=== PATIENT | female | born 1955 | race Caucasian/White ===

== ENCOUNTER 2019-01-24 10:29 | Emergency (ER) | payer OTHER ==
--- OUTSIDE RECORDS SUMMARY | 2019-01-24 10:32 | XMS REPORT | Continuity of Care Document ---
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 Medications Medication Details Route Status Patient Ordering Order Source Instructions Provider Date tramadol 50 mg=1 tab, Active 09/16/ [facility] hydrochloride 50 PO, BID, X 30 2019 [facility] MG Oral Tablet day, # 60 tab, 3 Refill(s) Actemra 20 mg/mL IV, q4wk, 0 Active 09/16/ Mischer intravenous Refill(s) 2019 Neuro solution pilocarpine 5 mg 5 mg=1 tab, Active 05/15/ Mischer oral tablet PO, TID, # 90 2018 Neuro tab, 0 Refill(s) pravastatin 20 mg 20 mg=1 tab, Active 05/15/ [facility] oral tablet PO, Bedtime, # 2018 [facility] 30 tab, 0 Refill(s) gabapentin 800 MG 800 mg=1 tab, No Longer 05/15/ M[facility] Oral Tablet PO, TID, # 270 Active 2018 [facility] tab, 3 Refill(s), Pharmacy: [facility] baclofen 10 mg 10 mg=1 tab, No Longer 05/15/ Mischer oral tablet PO, TID, # 270 Active 2018 Neuro tab, 2 Refill(s), Pharmacy: [facility] tramadol 50 mg=1 tab, No Longer 05/15/ Mischer hydrochloride 50 PO, BID, X 30 Active 2017 Neuro MG Oral Tablet day, # 60 tab, 3 Refill(s) celecoxib 200 mg 200 mg=1 cap, Active oral capsule PO, BID, 0 2016 Refill(s) 200 ACTUAT 180 Active Albuterol 0.09 microgram=2 2016 MG/ACTUAT Metered puff, Dose Inhaler INHALATION, RQID, 0 Refill(s) azaTHIOprine 50 mg 50 mg=1 tab, Active oral tablet PO, Daily, 0 2016 Refill(s) duloxetine 60 mg, 2 cap, No Longer Route: PO, Active 2016 [facility] Drug form: DRC, Daily, Dosing Weight 71.545, kg, Start date: 10/24/16 9:00:00 CDT, Duration: 30 day, Stop date: 11/22/16 9:00:00 CDTNotes: (Same as: Cymbalta) (Do Not Crush) celecoxib 200 mg, 1 cap, Inactive Route: PO, 2016 [facility] Drug form: CAP, BID, Dosing Weight 71.545, kg, Start date: 10/24/16 9:00:00 CDT, Duration: 30 day, Stop date: 11/22/16 17:00:00 CDTNotes: NSAID. Please check indication. Not for seizure. (Same As: CeleBREX) Duloxetine Duloxetine, 60 [facility]: [facility], Daily, 10/24/16 9:00:00 CDT, Duration: 30 day, Stop date: 11/22/16 9:00:00 CDT ProAir HFA 90 2 puff, Route: No Longer mcg/inh inhalation INHALATION, Active 2016 [facility] aerosol with Drug Form: adapter AERO/A, Dosing Weight 71.545, kg, RQID, Start date: 10/23/16 19:00:00 CDT, Duration: 30 day, Stop date: 11/22/16 15:00:00 CDTNotes: Same as: Ventolin HFA WASTE: Aerosol - Return to Pharmacy Azathioprine 50 mg, 1 tab, No Longer Route: PO, Active 2016 [facility] Drug form: TAB, Daily, Dosing Weight 71.545, kg, Start date: 10/23/16 16:00:00 CDT, Duration: 30 day, Stop date: 11/22/16 9:00:00 CDTNotes: (Same As: Imuran) Hydrochlorothiazid 1 tab, Route: No Longer e 25 MG / PO, Drug Form: Active 2016 [facility] Triamterene 37.5 TAB, Dosing MG Oral Tablet Weight 71.545, kg, Daily, Start date: 10/23/16 16:00:00 CDT, Duration: 30 day, Stop date: 11/22/16 9:00:00 CDTNotes: (triamterene-h ydrochlorothia zide 37.5-25 mg TAB) (Same As: Maxzide-25) Symbicort 160/4.5 2 inhalation, No Longer inhalation aerosol Route: Active 2016 [facility] with adapter INHALATION, Drug Form: AERO/A, Dosing Weight 71.545, kg, RBID, Start date: 10/23/16 13:19:00 CDT, Stop date: 11/22/16 8:00:00 CDTNotes: (Same as: Symbicort) WASTE: Aerosol - Return to Pharmacy 200 ACTUAT 2 puff, Route: Inactive Albuterol 0.09 INHALATION, 2016 [facility] MG/ACTUAT Metered Drug Form: Dose Inhaler AERO/A, Dosing [ProAir HFA] Weight 71.545, kg, RQID, Start date: 10/23/16 13:00:00 CDT, Duration: 30 day, Stop date: 11/22/16 11:00:00 CDTNotes: Same as: Ventolin HFA WASTE: Aerosol - Return to Pharmacy tramadol 50 mg, 1 tab, No Longer hydrochloride 50 Route: PO, Active 2016 [facility] Oral Tablet Drug form: TAB, Q6H, Dosing Weight 71.545, kg, PRN Pain Score 4-6, Start date: 10/23/16 11:53:00 CDT, Stop date: 11/22/16 11:52:00 CDTNotes: Not to exceed 400mg/day. (Same As: Ultram) Robaxin 500 mg, 1 tab, No Longer Route: PO, Active 2016 [facility] Drug form: TAB, TID, Dosing Weight 64.545, kg, Start date: 10/23/16 9:00:00 CDT, Duration: 30 day, Stop date: 11/21/16 17:00:00 CDTNotes: (Same as:Robaxin) Promethazine 12.5 mg, 0.5 No Longer mL, Route: Active 2016 [facility] IVPB, Q6H, Dosing Weight 71.545, kg, PRN as needed for nausea/vomitin g, Priority: NOW, Start date: 10/23/16 6:41:00 CDT, Duration: 30 day, Stop date: 11/22/16 6:40:00 CDTNotes: Do not give IV push. (Same as: Phenergan) Dilaudid 0.2 mg, 0.2 No Longer mL, Route: IV, 2016 [facility] Drug form: INJ, Q4H, Dosing Weight 71.545, kg, PRN Pain Score 4-6, Priority: NOW, Start date: 10/23/16 6:41:00 CDT, Duration: 30 day, Stop date: 11/22/16 6:40:00 CDT Acetaminophen 650 mg, 2 tab, No Longer Route: PO, 2016 [facility] Drug form: TAB, Q6H, Dosing Weight 71.545, kg, PRN Pain Score 1-3, Priority: NOW, Start date: 10/23/16 6:41:00 CDT, Duration: 30 day, Stop date: 11/22/16 6:40:00 CDTNotes: Do not exceed 4 gm/day. (Same as: Tylenol) Zofran 4 mg, 2 mL, No Longer Route: IV, Active 2016 [facility] Drug form: INJ, Q6H, Dosing Weight 71.545, kg, PRN as needed for nausea/vomitin g, Priority: NOW, Start date: 10/23/16 0:07:00 CDT, Duration: 30 day, Stop date: 11/22/16 0:06:00 CDTNotes: (Same as: Zofran) MEDICATION WASTE Product Size: 4 mg Product Wasted: ___ mg Clindamycin 900 mg, 50 mL, No Longer Route: IVPB, Active 2016 [facility] Drug form: INJ, ABXQ8H, Dosing Weight 64.545, kg, Start date: 10/22/16 18:00:00 CDT, Duration: 5 day, Stop date: 10/27/16 10:00:00 CDT, ABX Indication: Surgical Prophylaxis Dexamethasone 4 mg, 1 mL, Active Route: IVP, 2016 [facility] Drug form: INJ, Q6H, Dosing Weight 64.545, kg, Start date: 10/22/16 18:00:00 CDT, Duration: 1 day, Stop date: 10/23/16 12:00:00 CDTNotes: Concentration: 4mg/ml Promethazine 6.25 mg, No Longer Route: IVPB, 2016 [facility] PRN, Dosing Weight 64.545, kg, PRN as needed for nausea/vomitin g, Start date: 10/22/16 17:55:00 CDT, Duration: 30 day, Stop date: 11/21/16 17:54:00 CDT Fentanyl 50 microgram, No Longer Route: IV, Active 2016 [facility] Q5Min, Dosing Weight 64.545, kg, PRN Pain Score 7-10, Start date: 10/22/16 17:55:00 CDT, Duration: 30 day, Stop date: 11/21/16 17:54:00 CDT Hydralazine 10 mg, Route: No Longer IV, PRN, Active 2016 [facility] Dosing Weight 64.545, kg, PRN Elevated BP, Start date: 10/22/16 17:55:00 CDT, Duration: 30 day, Stop date: 11/21/16 17:54:00 CDT Demerol HCl 50 mg, Route: No Longer IV, Q10Min, Active 2016 [facility] Dosing Weight 64.545, kg, PRN Pain Score 7-10, Start date: 10/22/16 17:55:00 CDT, Duration: 4 day, Stop date: 10/26/16 17:54:00 CDT Morphine 4 mg, Route: No Longer IVP, Q5Min, Active 2016 [facility] Dosing Weight 64.545, kg, PRN Pain Score 7-10, Start date: 10/22/16 17:55:00 CDT, Duration: 3 doses or times, Stop date: Limited # of times Hydromorphone 0.5 mg, Route: Inactive IVP, Q5Min, 2016 [facility] Dosing Weight 64.545, kg, PRN Pain Score 7-10, Start date: 10/22/16 17:55:00 CDT, Duration: 4 doses or times, Stop date: Limited # of times Ondansetron 4 mg, Route: No Longer IVP, ONCE, Active 2016 [facility] Dosing Weight 64.545, kg, PRN Nausea & Vomiting, Start date: 10/22/16 17:55:00 CDT Ibuprofen 600 mg, Route: No Longer PO, Drug form: Active 2016 [facility] TAB, Q6H, Dosing Weight 64.545, kg, PRN Pain Score 1-3, Start date: 10/22/16 17:55:00 CDT, Duration: 30 day, Stop date: 11/21/16 17:54:00 CDT Ketorolac 30 mg, Route: No Longer IVP, ONCE, Active 2016 [facility] Dosing Weight 64.545, kg, Start date: 10/22/16 17:55:00 CDT, Duration: 1 doses or times, Stop date: 10/22/16 17:55:00 CDT Naloxone 0.4 mg, Route: No Longer IVP, Q2MIN, Active 2016 [facility] Dosing Weight 64.545, kg, PRN Narcotic Reversal, Start date: 10/22/16 17:55:00 CDT, Duration: 8 doses or times, Stop date: Limited # of times Flumazenil 0.2 mg, Route: No Longer IVP, PRN, Active 2016 [facility] Dosing Weight 64.545, kg, PRN Benzodiazepine Reversal, Initial dose, Start date: 10/22/16 17:55:00 CDT, Duration: 30 day, Stop date: 11/21/16 17:54:00 CDT Acetaminophen 325 2 tab, Route: No Longer MG / Hydrocodone PO, Drug Form: Active 2016 [facility] Bitartrate 10 MG TAB, Dosing Oral Tablet [[place] Weight 64.545, 10/325] kg, Q4H, PRN Pain Score 4-6, Start date: 10/22/16 17:47:00 CDT, Duration: 30 day, Stop date: 11/21/16 17:46:00 CDTNotes: Do not exceed 4gm/day of acetaminophen. (Same as: [place] 325/10) Morphine 2 mg, 1 mL, No Longer Route: IVP, Active 2016 [facility] Drug form: INJ, Q2H, Dosing Weight 64.545, kg, PRN Pain Score 7-10, Start date: 10/22/16 17:46:00 CDT, Duration: 30 day, Stop date: 11/21/16 17:45:00 CDTNotes: (Same as:MORPhine Sulfate) fentaNYL (ANES) Route: IV, Inactive Drug form: 2016 [facility] INJ, ONCE, Stop date: 10/22/16 17:46:00 CDT fentaNYL (ANES) Route: IV, Inactive Drug form: 2016 [facility] INJ, ONCE, Stop date: 10/22/16 17:33:00 CDT norepinephrine Route: IV, Inactive (ANES) Drug form: 2016 [facility] INJ, ONCE, Stop date: 10/22/16 17:33:00 CDT phenylephrine Route: IV, Inactive (ANES) Drug form: 2016 [facility] INJ, ONCE, Stop date: 10/22/16 17:31:00 CDT ondansetron (ANES) Route: IV, Inactive Drug form: 2016 [facility] INJ, ONCE, Stop date: 10/22/16 17:16:00 CDT calcium chloride Route: IV, Inactive (ANES) Drug form: 2016 [facility] INJ, ONCE, Stop date: 10/22/16 16:35:00 CDT albumin human Route: IV, Inactive 10/22/ (ANES) (ANES) Drug form: 2016 [facility] INJ, Start date: 10/22/16 15:35:00 CDT, Stop date: 10/22/16 16:35:00 CDT dexamethasone Route: IV, Inactive (ANES) Drug form: 2016 [facility] INJ, ONCE, Stop date: 10/22/16 15:30:00 CDT ceFAZolin (ANES) Route: IV, Inactive (ANES) Drug form: 2016 [facility] INJ, Start date: 10/22/16 14:55:00 CDT, Stop date: 10/22/16 15:55:00 CDT famotidine (ANES) Route: IV, Inactive Drug form: 2016 [facility] INJ, ONCE, Stop date: 10/22/16 14:43:00 CDT hydromorphone Route: IV, Inactive (ANES) Drug form: 2016 [facility] INJ, ONCE, Stop date: 10/22/16 13:32:00 CDT midazolam (ANES) Route: IV, Inactive Drug form: 2016 [facility] SOLN, ONCE, Stop date: 10/22/16 12:57:00 CDT ePHEDrine (ANES) Route: IV, Inactive Drug form: 2016 [facility] INJ, ONCE, Stop date: 10/22/16 12:42:00 CDT norepinephrine Route: IV, Inactive (ANES) Drug form: 2016 [facility] INJ, ONCE, Stop date: 10/22/16 12:37:00 CDT rocuronium (ANES) Route: IV, Inactive Drug form: 2016 [facility] INJ, ONCE, Stop date: 10/22/16 12:32:00 CDT propofol (ANES) Route: IV, Inactive Drug form: 2016 [facility] INJ, ONCE, Stop date: 10/22/16 12:32:00 CDT fentaNYL (ANES) Route: IV, Inactive Drug form: 2016 [facility] INJ, ONCE, Stop date: 10/22/16 12:32:00 CDT lidocaine (ANES) Route: IV, Inactive Drug form: 2016 [facility] INJ, ONCE, Stop date: 10/22/16 12:32:00 CDT acetaminophen Route: IV, Inactive (ANES) (ANES) Drug form: 2016 [facility] INJ, Start date: 10/22/16 11:35:00 CDT, Stop date: 10/22/16 12:35:00 CDT ceFAZolin (ANES) Route: IV, Inactive (ANES) Drug form: 2016 [facility] INJ, Start date: 10/22/16 11:30:00 CDT, Stop date: 10/22/16 12:30:00 CDT LR 1000 mL INJ Route: IV, Inactive (ANES) Total Volume: 2016 [facility] 1,000, Start date: 10/22/16 11:04:00 CDT, Stop date: 10/22/16 12:04:00 CDT Lactated Ringers 1,000 mL, No Longer 1,000 mL Rate: [address] [facility] ml/hr, Infuse over: 40 hr, Route: IV, Dosing Weight 64.545 kg, Total Volume: 1,000, Start date: 10/22/16 9:26:00 CDT, Duration: 30 day, Stop date: 11/21/16 9:25:00 CDT amitriptyline 10 10 mg=1 tab, Active mg oral tablet PO, Bedtime, # 2017 [facility] 30 day, 0 Refill(s) gabapentin 800 MG 800 mg=1 tab, Active Oral Tablet PO, TID, # 270 2016 tab, 0 Refill(s) azaTHIOprine 50 mg 100 mg=2 tab, Active oral tablet PO, Daily, # 2016 60 tab, 0 Refill(s) Fentanyl 50 microgram, Inactive Route: IVP, 2014 Q5Min, Dosing Weight 60.909, kg, PRN Pain Score 7-10, Start date: 05/10/15 11:01:00, Duration: 2 doses or times, Stop date: Limited # of times Naloxone 0.04 mg, Inactive Route: IVP, 2014 [facility] Q2MIN, Dosing Weight 60.909, kg, PRN Narcotic Reversal, Start date: 05/10/15 11:01:00, Duration: 8 doses or times, Stop date: Limited # of times Flumazenil 0.2 mg, Route: Inactive 05/10[facility] IVP, PRN, 2014 [facility] Dosing Weight 60.909, kg, PRN Benzodiazepine Reversal, Initial dose, Start date: 05/10/15 11:01:00, Duration: 30 day, Stop date: 06/09/15 11:00:00 Meperidine 12.5 mg, Inactive Route: IVP, 2014 [facility] Q30Min, Dosing Weight 60.909, kg, PRN Other -See Comment, For shivering, Start date: 05/10/15 11:01:00, Duration: 2 doses or times, Stop date: Limited # of times Hydromorphone 0.5 mg, Route: Inactive IVP, Q5Min, 2014 [facility] Dosing Weight 60.909, kg, PRN Pain Score 7-10, Start date: 05/10/15 11:01:00, Duration: 4 doses or times, Stop date: Limited # of times Ondansetron 4 mg, Route: Inactive 05/10[facility] IVP, ONCE, 2014 [facility] Dosing Weight 60.909, kg, PRN Nausea & Vomiting, Start date: 05/10/15 11:01:00 Acetaminophen 1,000 mg, Inactive Route: IVPB, 2014 [facility] Drug form: INJ, ONCE, Dosing Weight 60.909, kg, PRN Pain Score 1-3, Start date: 05/10/15 11:01:00, Duration: 1 doses or times, Stop date: Limited # of times Oxycodone 5 mg, Route: Inactive PO, Drug form: 2014 [facility] TAB, Q4H, Dosing Weight 60.909, kg, PRN Pain Score 4-6, Start date: 05/10/15 11:01:00, Duration: 30 day, Stop date: 06/09/15 11:00:00 Calcium Chloride 1,000 mL, Inactive 0.0014 MEQ/ML / Rate: [address] [facility] Potassium Chloride ml/hr, Infuse 0.004 MEQ/ML / over: 40 hr, Sodium Chloride Route: IV, 0.103 MEQ/ML / Dosing Weight Sodium Lactate 60.909 kg, 0.028 MEQ/ML Total Volume: Injectable 1,000, Start Solution date: 05/10/15 9:17:00, Duration: 30 day, Stop date: 06/09/15 9:16:00 Ancef 1 gm, Route: Inactive IVPB, ONCE, 2014 [facility] Dosing Weight 60.909, kg, Start date: 05/10/15 7:56:00, Stop date: 05/10/15 7:56:00 Calcium Chloride 1,000 mL, Inactive 0.0014 MEQ/ML / Rate: [address] [facility] Potassium Chloride ml/hr, Infuse 0.004 MEQ/ML / over: 40 hr, Sodium Chloride Route: IV, 0.103 MEQ/ML / Dosing Weight Sodium Lactate 60.909 kg, 0.028 MEQ/ML Total Volume: Injectable 1,000, Start Solution date: 05/10/15 7:04:00, Duration: 30 day, Stop date: 06/09/15 7:03:00 multivitamin with 0 Refill(s) Active minerals 2014 [facility] Fish Oil 1200 mg 1,200 mg=1 Active oral capsule cap, PO, TID, 2014 0 Refill(s) Zinc 140 mg, PO, Active Daily, [address] [facility] Refill(s) Magnesium Oxide 400 mg=1 tab, Active PO, BID, # [address] [facility] tab, 0 Refill(s) Calcium Carbonate 0 Refill(s) Active 2014 [facility] Probiotic Formula 1 cap, PO, Active Daily, [address] [facility] Refill(s) Acetaminophen 500 1,000 mg=2 Active MG Oral Tablet tab, PO, Q4H, 2014 [facility] [Tylenol] PRN Pain, # 120 tab, 0 Refill(s) cetirizine 10 mg=1 tab, Active hydrochloride 10 PO, Daily, # 2015 [facility] Oral Tablet 30 tab, 0 [Zyrtec] Refill(s) Ventolin HFA 2 puff, Active INHALATION, 2014 PRN, 0 Refill(s) Hydrochlorothiazid 1 tab, PO, Active e 25 MG / Daily, # 30 2014 Triamterene 37.5 tab, 0 MG Oral Tablet Refill(s) Symbicort 160/4.5 2 puff, Active inhalation aerosol INHALER, BID, 2014 with adapter # 1 ea, 3 Refill(s) predniSONE 5 mg 5 mg=1 tab, Active oral tablet PO, Daily, 2014 Give with food., # 30 tab, 0 Refill(s) baclofen 10 mg 10 mg=1 tab, Active oral tablet PO, TID, # 270 2014 tab, 0 Refill(s) celecoxib 200 mg 200 mg=1 cap, Active oral capsule PO, BID, # [address] [facility] cap, 0 Refill(s) tramadol 50 mg=1 tab, Active hydrochloride 50 PO, BID, # 180 2014 [facility] Oral Tablet tab, 1 Refill(s) DULoxetine 30 mg 30 mg=1 cap, Active oral delayed PO, Daily, # 2014 [facility] release capsule 30 cap, 0 Refill(s) gabapentin 600 MG 600 mg=1 tab, Active Oral Tablet PO, TID, # 90 2014 tab, 0 Refill(s) leflunomide 10 mg 10 mg=1 tab, Active oral tablet PO, Daily, # 2014 30 tab, 0 Refill(s) infliximab 10 IV, 0 Active MG/ML Injectable Refill(s) 2014 Solution [Remicade] Allergies, Adverse Reactions, Alerts Substance Category Reaction Severity Reaction Status Date Comments Source type Reported No Known Assertion Drug [facility] Medication allergy [facility] Allergies Immunizations Immunization Date Given Site Status Last Comments Source Updated pneumococcal 10/23/2016 Right arm completed Amina Admin Note: [facility]ischer 23-valent got in [facility] vaccine<sup>1</vázquez 12/19/2015 [facility] p> Results Order Name Results Value Reference Date Interpretation Comments Source Range URINE AND UA <=1.0 0.1 - 1.0 10/22 [facility] Urobilinogen mg/dL /2016 [facility] URINE AND UA Color Colorless 10/22 [facility] URINE AND UA WBC 2 0 - 5 10/22 [facility] URINE AND UA Leuk Est Negative Negative 10/22 [facility] (10/22/16 9:55 AM) [facility] URINE AND UA Sq Epi Occasional Few /LPF 10/22 STOOL /LPF /2016 [facility] URINE AND UA RBC 1 0 - 2 10/22 [facility]OOL [facility] URINE AND UA Bili Negative Negative 10/22 STOOL *NA* /2016 [facility] (10/22/16 9:55 AM) URINE AND UA Blood Moderate Negative 10/22 STOOL *ABN* /2016 [facility] (10/22/16 9:55 AM) URINE AND UA Nitrite Negative Negative 10/22 [facility] (10/22/16 9:55 AM) [facility] URINE AND UA Turbidity Clear Clear 10/22 [facility] (10/22/16 9:55 AM) [facility] URINE AND UA Spec Grav 1.004 <=1.030 10/22 [facility] URINE AND UA pH 8.0 5.0 - 8.0 10/22 [facility] URINE AND UA Protein Negative Negative 10/22 [facility] mg/dL mg/dL [facility] URINE AND UA Glucose Negative Negative 10/22 [facility] mg/dL mg/dL [facility] URINE AND UA Ketones Negative Negative 10/22 STOOL mg/dL mg/dL [facility] ELECTROLYT AGAP 13.7 10.0 - 10/[address] [facility] ELECTROLYT eGFR 80 10/16 Result ES /2016 Comment: The [facility] eGFR is calculated using the CKD-EPI formula. In most young, healthy individuals the eGFR will be >90 mL/min/1.73m2 . The eGFR declines with age. An eGFR of 60-89 may be normal in some populations, particularly the elderly, for whom the CKD-EPI formula has not been extensively validated. Use of the eGFR is not recommended in the following populations:< br/>
Erika viduals with unstable creatinine concentration s, including patients and those with serious co-morbid conditions.<b r/>
Patie nts with extremes in muscle mass or diet.

The data above are obtained from the National Kidney Disease Education Program (NKDEP) which additionally recommends that when the eGFR is used in patients with extremes of body mass index for purposes of drug dosing, the eGFR should be multiplied by the estimated BMI. ELECTROLYT Calcium Lvl 9.4 8.5 - 10.5 / MH [facility] ELECTROLYT BUN 20 7 - [address] [facility] ELECTROLYT CO2 30 24 - 32 05/ MH ES [facility] ELECTROLYT Chloride Lvl 96 95 - 109 05/ MH ES [facility] ELECTROLYT Glucose Lvl 90 70 - 99 10/[address] [facility] ELECTROLYT Potassium 3.7 3.5 - 5.1 10/16 MH ES Lvl /2016 [facility] ELECTROLYT Sodium Lvl 136 135 - 145 10/[address] [facility] ELECTROLYT Creatinine 0.79 0.50 - 10/16 MH ES Lvl 1.40 /2016 [facility] HEMATOLOGY PTT 32.7 22.9 - 10/16 MH 35.8 /2016 [facility] HEMATOLOGY PT 12.2 12.0 - 10/[address] [facility] HEMATOLOGY INR 0.89 0.85 - 10/16 MH 1.17 /2016 [facility] HEMATOLOGY MPV 8.4 7.4 - 10.4 10/16 [facility] HEMATOLOGY RDW 13.3 11.5 - 10/[address] [facility] HEMATOLOGY Platelet 235 133 - 450 10/16 [facility] HEMATOLOGY MCH 32.5 27.0 - 10/16 MH 31.0 /2016 [facility] HEMATOLOGY MCHC 34.5 32.0 - 10/16 MH 36.0 /2016 [facility] HEMATOLOGY MCV 94.2 80.0 - 10/16 MH 98.0 /2017 [facility] HEMATOLOGY Hgb 13.8 12.0 - 10/16 MH 16.0 /2017 [facility] HEMATOLOGY RBC 4.24 4.20 - 10/16 MH 5.40 /2016 [facility] HEMATOLOGY WBC 8.3 3.7 - 10.4 10/16 [facility] HEMATOLOGY Hct 39.9 36.0 - 10/16 MH 48.0 /2016 [facility] HEMATOLOGY Segs 62.3 45.0 - 05 MH 75.0 /2017 [facility] HEMATOLOGY Basophils # 0.1 0.0 - 0.2 10/16 [facility] HEMATOLOGY Monocytes # 1.1 0.0 - 0.8 0530 MH /2017 [facility] HEMATOLOGY Lymphocytes 1.9 1.0 - 5.5 / MH # /2017 [facility] HEMATOLOGY Basophils 0.8 0.0 - 1.0 10/16 [facility] HEMATOLOGY Segs-Bands # 5.2 1.5 - 8.1 10/16 [facility] HEMATOLOGY Eosinophils 0.4 0.0 - 4.0 10/16 [facility] HEMATOLOGY Monocytes 13.3 2.0 - 12.0 10/16 [facility] HEMATOLOGY Lymphocytes 23.2 20.0 - 10/[address] [facility] URINE AND UA Sq Epi Occasional Few /LPF 10/16 STOOL /LPF /2016 [facility] URINE AND UA Leuk Est Moderate Negative 10/16 STOOL *ABN* /2016 [facility] (10/16/16 11:44 AM) URINE AND UA RBC 2 0 - 2 10/[address] [facility] URINE AND UA Nitrite Negative Negative 10/16 [facility] (10/16/16 11:44 AM) [facility] URINE AND UA WBC 32 0 - 5 10/16 [facility] URINE AND UA Ketones Negative Negative 10/16 STOOL mg/dL mg/dL [facility] URINE AND UA Bili Negative Negative 10/16 STOOL *NA* /2016 [facility] (10/16/16 11:44 AM) URINE AND UA Blood Small Negative 10/16 STOOL *ABN* /2016 [facility] (10/16/16 11:44 AM) URINE AND UA Glucose Negative Negative 10/16 [facility] mg/dL mg/dL [facility] URINE AND UA Protein Negative Negative 10/16 STO[facility] mg/dL mg/dL [facility] URINE AND UA Bacteria Moderate None Seen 10/16 STOOL /HPF /HPF /2016 [facility] URINE AND UA <=1.0 0.1 - 1.0 10/16 STOOL Urobilinogen mg/dL [facility] URINE AND UA Color Ltyellow 10/16 STOOL [facility] URINE AND UA Turbidity Clear Clear 10/16 [facility] (10/16/16 11:44 AM) [facility] URINE AND UA pH 7.0 5.0 - 8.0 10/16 STO[facility] URINE AND UA Spec Grav 1.012 <=1.030 10/[address] [facility] HEMATOLOGY RBC 4.53 4.20 - 12/14 MH 5.40 /2015 [facility] HEMATOLOGY WBC 7.6 3.7 - 10.4 12 /2014 [facility] HEMATOLOGY MCH 31.2 27.0 - 12 31.0 /2014 [facility] HEMATOLOGY MCV 92.2 80.0 - 05/02 98.0 /2014 [facility] HEMATOLOGY Hct 41.8 36.0 - 05/02 48.0 /2014 [facility] HEMATOLOGY Hgb 14.1 12.0 - 05/02 16.0 /2014 [facility] HEMATOLOGY Platelet 206 133 - 450 12 /2014 [facility] HEMATOLOGY MPV 7.7 7.4 - 10.4 05/02 /[facility] [facility]EM[facility] MCHC 33.9 32.0 - 05/02 36.0 /2014 [facility] HEMATOLOGY RDW 12.4 11.5 - 05/02 14.5 /2014 [facility] HEMATOLOGY Eosinophils 0.2 0.0 - 4.0 05/02 [facility] HEMATOLOGY Monocytes # 0.6 0.0 - 0.8 05/02 /2014 [facility] HEMATOLOGY Lymphocytes 1.6 1.0 - 5.5 05/02 /2014 [facility] HEMATOLOGY Segs-Bands # 5.3 1.5 - 8.1 05/02 [facility] HEMATOLOGY Basophils 0.6 0.0 - 1.0 05/02 /2014 [facility] HEMATOLOGY Lymphocytes 21.5 20.0 - 05/02 40.0 /2014 [facility] HEMATOLOGY Monocytes 7.3 2.0 - 12.0 05/02 [facility] HEMATOLOGY Segs 70.4 45.0 - 05/02 75.0 /2014 [facility] ELECTROLYT AGAP 10.7 10.0 - 05/[address] [facility] ELECTROLYT CO2 30 24 - 32 05/02 ES /2014 [facility] ELECTROLYT Chloride Lvl 94 95 - 109 05/02 ES /2014 [facility] ELECTROLYT Potassium 3.7 3.5 - 5.1 05/02 ES Lvl /2014 [facility] ELECTROLYT Sodium Lvl 131 135 - 145 05/02 ES /2014 [facility] Pathology Reports No Data Provided for This Section Diagnostic Reports Report Value Date Source Spine lumbar 2 or 3 Study: Intraoperative radiographs of lumbar spine 2016 [facility] DX History: Posterior fixation Impression: 2 fluoroscopic spot views of lumbar spine show posterior fixation metallic hardware at L3 L4 L5. Consultation Notes No Data Provided for This Section Discharge Summaries No Data Provided for This Section History and Physicals No Data Provided for This Section Vital Signs Vital Sign Value Date Comments Source Systolic (mm Hg) 122 01/13/2019 [facility] Diastolic (mm Hg) 72 01/13/2019 [facility] Heart Rate 71 01/13/2019 [facility] Height 170.18 cm 01/13/2019 [facility] Weight 63.636 01/13/2019 [facility] BMI Calculated 21.97 01/13/2019 [facility] Height 160.02 cm 09/16/2018 [facility] BMI Calculated 25.74 09/16/2018 [facility] Weight 65.909 09/16/2018 [facility] Respitory Rate 16 09/16/2018 [facility] Heart Rate 70 09/16/2018 [facility] Systolic (mm Hg) 163 09/16/2018 [facility] Diastolic (mm Hg) 69 09/16/2018 [facility] Respitory Rate 16 05/15/2018 [facility] Heart Rate 73 05/15/2018 [facility] BMI Calculated 24.18 05/15/2018 [facility] Weight 65.909 05/15/2018 [facility] Height 165.1 cm 05/15/2018 [facility] Systolic (mm Hg) 124 05/15/2018 [facility] Diastolic (mm Hg) 58 05/15/2018 [facility] Systolic (mm Hg) 149 10/24/2016 [facility] Diastolic (mm Hg) 75 10/24/2016 [facility] Heart Rate 88 10/24/2016 [facility] Temperature Oral (F) 97.9 F 10/24/2016 [facility] Heart Rate 88 10/24/2016 [facility] Systolic (mm Hg) 146 10/24/2016 [facility] Diastolic (mm Hg) 73 10/24/2016 [facility] Temperature Oral (F) 97.9 F 10/24/2016 [facility] Systolic (mm Hg) 129 10/24/2016 [facility] Diastolic (mm Hg) 73 10/24/2016 [facility] Temperature Oral (F) 98.0 F 10/24/2016 [facility] Heart Rate 84 10/24/2016 [facility] Respitory Rate 16 10/23/2016 [facility] Respitory Rate 16 10/23/2016 [facility] Respitory Rate 16 10/23/2016 [facility] BMI Calculated 24.7 10/23/2016 [facility] Height 170.18 cm 10/23/2016 [facility] Weight 71.545 10/23/2016 [facility] Height 170.18 cm 10/16/2016 [facility] Weight 64.545 10/16/2016 [facility] BMI Calculated 22.29 10/16/2016 [facility] Systolic (mm Hg) 124 05/10/2015 [facility] Diastolic (mm Hg) 60 05/10/2015 [facility] Respitory Rate 13 05/10/2015 [facility] Systolic (mm Hg) 129 05/10/2015 [facility] Diastolic (mm Hg) 69 05/10/2015 [facility] Respitory Rate 17 05/10/2015 [facility] Systolic (mm Hg) 146 05/10/2015 [facility] Diastolic (mm Hg) 83 05/10/2015 [facility] Respitory Rate 13 05/10/2015 [facility] Heart Rate 70 05/10/2015 [facility] Temperature Oral (F) 97.6 F 05/02/2015 [facility] Heart Rate 75 05/02/2015 [facility] Weight 60.909 05/02/2015 [facility] Height 170.18 cm 05/02/2015 [facility] BMI Calculated 21.03 05/02/2015 [facility] Encounters Location Location Encounter Encounter Reason Attending ADM DC Status Source Details Type Number For Provider Date Date Visit [facility] [id number] Otto 05/10 05/10 [facility] /2014 [facility] [id number] Otto 10/22 10/24 [facility] /2016 [facility] Outpatient [id number] DAWN 07/30 [facility]patient [id number] DAWN 10/22 [facility] Out[facility] [id number] DAWN 01/16 [facility] Outpatient [id number] DAWN 01/23 [facility] Outpatient [id number] DAWN 05/15 [facility] [id number] Dawn 05/15 05/16 [facility] [place] [id number] Dawn 09/16 Active [facility] [place] [facility] [id number] Dawn 09/16 09/17 [facility]2018 [facility] [place] [id number] Dawn 01/13 Active [facility] [place] [facility] [id number] Dawn 01/13 01/14 [facility] [place]2018 [facility] [place] [id number] Dawn 07/14 Active [facility] [place] Procedures Procedure Code Date Perfomer Comments Source Operation [id number] 05/20/2015 [facility] Kidney [id number] auto transplant [facility] [place]<s Neuro, up>1</sup> [facility] Laminectomy and [id number] [facility] Assessment and Plan No Data Provided for This Section Plan of Care No Data Provided for This Section Social History Social History Date Source Social History TypeResponse 10/23/2016 [facility] Substance Abuse Use: None. Sexual Sexually active: No. Exercise Exercise duration: 40. Exercise frequency: 3-4 times/week. Exercise type: Walking. Employment/School Status: Retired. Alcohol Never Smoking Status Never smoker; Exposure to Tobacco Smoke None; Cigarette Smoking Last 365 Days No; Reg Smoking Cessation Counseling No Social History TypeResponse 10/23/2016 [facility] Alcohol Never Employment/School Status: Retired. Exercise Exercise duration: 40. Exercise frequency: 3-4 times/week. Exercise type: Walking. Sexual Sexually active: No. Substance Abuse Use: None. Smoking Status Never smoker; Exposure to Tobacco Smoke None; Cigarette Smoking Last 365 Days No; Reg Smoking Cessation Counseling No entered on: 01/13/19 Family History No Data Provided for This Section Advance Directives No Data Provided for This Section Functional Status No Data Provided for This Section
--- OUTSIDE RECORDS SUMMARY | 2019-01-24 10:33 | XMS REPORT | Summary of Care ---
:1955 Author Organization [facility] [place] Address [address] [place] [address]- Encounter HQ Mynor(MARIE) [id number] Date(s): 05/15/18 - 05/15/18 [facility] [address] [place] [address]- [phone] Discharge Disposition: Home or Self Care Attending Physician: Manpreet Thomas MD Referring Physician: Manpreet Thomas MD Vital Signs Most recent to oldest [Reference Range]: 1 Height 165.1 cm (05/15/18 9:14 AM) Blood Pressure [90-140/60-90 mmHg] 124/58 mmHg (05/15/18 9:14 AM) Respiratory Rate [14-20 BRMIN] 16 BRMIN (05/15/18 9:14 AM) Peripheral Pulse Rate [60-100 bpm] 73 bpm (05/15/18 9:14 AM) Weight 65.909 kg (05/15/18 9:14 AM) Body Mass Index 24.18 m2 (05/15/18 9:14 AM) Problem List Condition Effective Dates Status Health Status Informant Arthritis(Confirmed)1 Resolved Chronic rheumatic Active arthritis(Confirmed) COPD(Confirmed) Resolved LARA (dyspnea on exertion)(Confirmed) Active Headache(Confirmed) Resolved Hx of kidney transplant(Confirmed)2 Resolved Hypertension(Confirmed) Resolved Lumbar radiculopathy(Confirmed) Active m - Multiple tumors(Confirmed)3 Resolved Pneumonia(Confirmed) Resolved [id number] left Allergies, Adverse Reactions, Alerts No Known Medication Allergies Medications baclofen 10 mg oral tablet 10 mg=1 tab, PO, TID, # 270 tab, 2 Refill(s), Pharmacy: [facility] Start Date: 05/15/18 Stop Date: 09/08/18 Status: Completedgabapentin 800 mg oral tablet 800 mg=1 tab, PO, TID, # 270 tab, 3 Refill(s), Pharmacy: [facility] Start Date: 05/15/18 Stop Date: 07/17/18 Status: Completedpilocarpine 5 mg oral tablet 5 mg=1 tab, PO, TID, # 90 tab, 0 Refill(s) Start Date: 05/15/18 Status: Orderedpravastatin 20 mg oral tablet 20 mg=1 tab, PO, Bedtime, # 30 tab, 0 Refill(s) Start Date: 05/15/18 Status: Orderedtramadol 50 mg oral tablet 50 mg=1 tab, PO, BID, X 30 day, # 60 tab, 3 Refill(s) Start Date: 05/15/18 Stop Date: 09/12/18 Status: Completed Results No data available for this section Immunizations Given and Recorded Vaccine Date Status Refusal Reason pneumococcal 23-valent vaccine1 10/22/16 Given 1Admin Note: got in 12/19/2015 Procedures Procedure Date Related Diagnosis Body Site Status Operation 2015 Completed Kidney transplantation1 Completed Laminectomy and discectomy Completed 1auto transplant Social History Social History Type Response Substance Abuse Use: None. Sexual Sexually active: No. Exercise Exercise duration: 40. Exercise frequency: 3-4 times/week. Exercise type: Walking. Employment/School Status: Retired. Alcohol Never Smoking Status Never smoker; Exposure to Tobacco Smoke None; Cigarette Smoking Last 365 Days No; Reg Smoking Cessation Counseling No entered on: 09/16/18 Assessment and Plan No data available for this section
--- OUTSIDE RECORDS SUMMARY | 2019-01-24 10:33 | XMS REPORT | Summary of Care ---
:1955 Author Organization [facility] [place] Address [address] [place] [address]- Encounter HQ Mynor(MARIE) [id number] Date(s): 09/16/18 - 09/16/18 [facility] [address] [place] [address]- [phone] Discharge Disposition: Home or Self Care Attending Physician: Manpreet Thomas MD Referring Physician: Manpreet Thomas MD Vital Signs Most recent to oldest [Reference Range]: 1 Height 160.02 cm (09/16/18 10:18 AM) Blood Pressure [90-140/60-90 mmHg] 163/69 mmHg *HI* (09/16/18 10:18 AM) Respiratory Rate [14-20 BRMIN] 16 BRMIN (09/16/18 10:18 AM) Peripheral Pulse Rate [60-100 bpm] 70 bpm (09/16/18 10:18 AM) Weight 65.909 kg (09/16/18 10:18 AM) Body Mass Index 25.74 m2 (09/16/18 10:18 AM) Problem List Condition Effective Dates Status Health Status Informant Arthritis(Confirmed)1 Resolved Chronic rheumatic Active arthritis(Confirmed) COPD(Confirmed) Resolved LARA (dyspnea on exertion)(Confirmed) Active Headache(Confirmed) Resolved Hx of kidney transplant(Confirmed)2 Resolved Hypertension(Confirmed) Resolved Lumbar radiculopathy(Confirmed) Active m - Multiple tumors(Confirmed)3 Resolved Pneumonia(Confirmed) Resolved [id number] left Allergies, Adverse Reactions, Alerts No Known Medication Allergies Medications Actemra 20 mg/mL intravenous solution IV, q4wk, 0 Refill(s) Start Date: 09/16/18 Status: Orderedtramadol 50 mg oral tablet 50 mg=1 tab, PO, BID, X 30 day, # 60 tab, 3 Refill(s) Start Date: 09/16/18 Stop Date: 01/14/19 Status: Ordered Results No data available for this section [...]
--- OUTSIDE RECORDS SUMMARY | 2019-01-24 10:33 | XMS REPORT | Summary of Care ---
:1955 Author Organization [facility] [place] Address [address] [place] [address]- Encounter HQ Mynor(MARIE) [id number] Date(s): 01/13/19 - 01/13/19 [facility] [address] [place] [address]- [phone] Discharge Disposition: Home or Self Care Attending Physician: Manpreet Thomas MD Referring Physician: Stuart Sahu MD Vital Signs Most recent to oldest [Reference Range]: 1 Height 170.18 cm (01/13/19 10:52 AM) Blood Pressure [90-140/60-90 mmHg] 122/72 mmHg (01/13/19 10:52 AM) Peripheral Pulse Rate [60-100 bpm] 71 bpm (01/13/19 10:52 AM) Weight 63.636 kg (01/13/19 10:52 AM) Body Mass Index 21.97 m2 (01/13/19 10:52 AM) Problem List Condition Effective Dates Status Health Status Informant Arthritis(Confirmed)1 Resolved Chronic rheumatic Active arthritis(Confirmed) COPD(Confirmed) Resolved LARA (dyspnea on exertion)(Confirmed) Active Headache(Confirmed) Resolved Hx of kidney transplant(Confirmed)2 Resolved Hypertension(Confirmed) Resolved Lumbar radiculopathy(Confirmed) Active m - Multiple tumors(Confirmed)3 Resolved Paresthesia of arm(Confirmed) Active Pneumonia(Confirmed) Resolved [id number] left Allergies, Adverse Reactions, Alerts No Known Medication Allergies Medications No Known Medications Results No data available for this section Immunizations Given and Recorded Vaccine Date Status Refusal Reason pneumococcal 23-valent vaccine1 10/22/16 Given 1Admin Note: got in 12/19/2015 Procedures Procedure Date Related Diagnosis Body Site Status Operation 2016 Completed Kidney transplantation1 Completed Laminectomy and discectomy Completed 1auto transplant Social History Social History Type Response Alcohol Never Employment/School Status: Retired. Exercise Exercise duration: 40. Exercise frequency: 3-4 times/week. Exercise type: Walking. Sexual Sexually active: No. Substance Abuse Use: None. Smoking Status Never smoker; Exposure to Tobacco Smoke None; Cigarette Smoking Last 365 Days No; Reg Smoking Cessation Counseling No entered on: 01/13/19 Assessment and Plan No data available for this section
--- OUTSIDE RECORDS SUMMARY | 2019-01-24 10:33 | XMS REPORT | Summary of Care ---
:1955 Author Organization [facility] Address [address] [place], [place] [address]- Encounter HQ Encntr_aliluba(FIN) [id number] Date(s): 10/22/16 - 10/24/16 [facility] [address] [place] [address]- Discharge Disposition: Home or Self Care Attending Physician: Otto Lopez MD Admitting Physician: Otto Lopez MD Referring Physician: Otto Lopez MD Vital Signs Most recent to oldest 1 2 3 [Reference Range]: Height 170.18 cm 170.18 cm (10/22/16 8:16 PM) (10/16/16 10:58 AM) Temperature Oral [96.4-99.1 97.9 DegF 97.9 DegF 98.0 DegF DegF] (10/24/16 11:33 AM) (10/24/16 7:38 AM) (10/24/16 4:00 AM) Blood Pressure [90-140/60-90 149/75 mmHg 146/73 mmHg 129/73 mmHg mmHg] *HI* *HI* (10/24/16 4:00 AM) (10/24/16 11:33 AM) (10/24/16 7:38 AM) Respiratory Rate [14-20 BRMIN] 16 BRMIN 16 BRMIN 16 BRMIN (10/23/16 3:46 PM) (10/23/16 10:57 AM) (10/23/16 7:09 AM) Peripheral Pulse Rate [60-100 88 bpm 88 bpm 84 bpm bpm] (10/24/16 11:33 AM) (10/24/16 7:38 AM) (10/24/16 4:00 AM) Weight 71.545 kg 64.545 kg (10/22/16 8:16 PM) (10/16/16 10:58 AM) Body Mass Index 24.7 m2 22.29 m2 (10/22/16 8:16 PM) (10/16/16 10:58 AM) Problem List Condition Effective Dates Status Health Status Informant Arthritis(Confirmed)1 Resolved Chronic rheumatic Resolved arthritis(Confirmed) COPD(Confirmed) Resolved LARA (dyspnea on exertion)(Confirmed) Active Headache(Confirmed) Resolved Hx of kidney transplant(Confirmed)2 Resolved Hypertension(Confirmed) Resolved Lumbar radiculopathy(Confirmed) Active m - Multiple tumors(Confirmed)3 Resolved Pneumonia(Confirmed) Resolved [id number] left Allergies, Adverse Reactions, Alerts Substance Reaction Severity Status NKDA Active Medications acetaminophen 650 mg, 2 tab, Route: PO, Drug form: TAB, Q6H, Dosing Weight 71.545, kg, PRN Pain Score 1-3, Priority: NOW, Start date: 10/23/16 6:41:00 CDT, Duration: 30 day, Stop date: 11/22/16 6:40:00 CDT Notes: Do not exceed 4 gm/day. (Same as: Tylenol) Start Date: 10/23/16 Stop Date: 10/24/16 Status: Discontinuedacetaminophen (ANES) (ANES) Route: IV, Drug form: INJ, Start date: 10/22/16 11:35:00 CDT, Stop date: 12:35:00 CDT Start Date: 10/22/16 Stop Date: 10/22/16 Status: Completedalbumin human (ANES) (ANES) Route: IV, Drug form: INJ, Start date: 10/22/16 15:35:00 CDT, Stop date: 16:35:00 CDT Start Date: 10/22/16 Stop Date: 10/22/16 Status: Completedalbuterol 90 mcg/inh inhalation aerosol 180 microgram=2 puff, INHALATION, RQID, 0 Refill(s) Start Date: 10/24/16 Status: Orderedamitriptyline 10 mg oral tablet 10 mg=1 tab, PO, Bedtime, # 30 day, 0 Refill(s) Start Date: 10/16/16 Status: OrderedANES flumazenil 0.2 mg, Route: IVP, PRN, Dosing Weight 64.545, kg, PRN Benzodiazepine Reversal, Initial dose, Start date: 10/22/16 17:55:00 CDT, Duration: 30 day, Stop date: 17:54:00 CDT Start Date: 10/22/16 Stop Date: 10/23/16 Status: DiscontinuedANES HYDROmorphone 0.5 mg, Route: IVP, Q5Min, Dosing Weight 64.545, kg, PRN Pain Score 7-10, Start date: 10/22/16 17:55:00 CDT, Duration: 4 doses or times, Stop date: Limited # of times Start Date: 10/22/16 Stop Date: 10/22/16 Status: CompletedANES ibuprofen 600 mg, Route: PO, Drug form: TAB, Q6H, Dosing Weight 64.545, kg, PRN Pain Score 1-3, Start date: 10/22/16 17:55:00 CDT, Duration: 30 day, Stop date: 11/21 17:54:00 CDT Start Date: 10/22/16 Stop Date: 10/23/16 Status: DiscontinuedANES ketOROLAC 30 mg, Route: IVP, ONCE, Dosing Weight 64.545, kg, Start date: 10/22/16 17:55: 00 CDT, Duration: 1 doses or times, Stop date: 10/22/16 17:55:00 CDT Start Date: 10/22/16 Stop Date: 10/23/16 Status: DiscontinuedANES morphine Sulfate 4 mg, Route: IVP, Q5Min, Dosing Weight 64.545, kg, PRN Pain Score 7-10, Start date: 10/22/16 17:55:00 CDT, Duration: 3 doses or times, Stop date: Limited # of times Start Date: 10/22/16 Stop Date: 10/23/16 Status: DiscontinuedANES morphine Sulfate 2 mg, Route: IVP, Q5Min, Dosing Weight 64.545, kg, PRN Pain Score 4-6, Start date: 10/22/16 17:55:00CDT, Duration: 5 doses or times, Stop date: Limited # of times Start Date: 10/22/16 Stop Date: 10/23/16 Status: DiscontinuedANES naloxone 0.4 mg, Route: IVP, Q2MIN, Dosing Weight 64.545, kg, PRN Narcotic Reversal, Start date: 10/22/16 17:55:00 CDT, Duration: 8 doses or times, Stop date: Limited # of times Start Date: 10/22/16 Stop Date: 10/23/16 Status: DiscontinuedANES ondansetron 4 mg, Route: IVP, ONCE, Dosing Weight 64.545, kg, PRN Nausea & Vomiting, Start date: 10/22/16 17:55:00 CDT Start Date: 10/22/16 Stop Date: 10/23/16 Status: DiscontinuedazaTHIOprine 50 mg, 1 tab, Route: PO, Drug form: TAB, Daily, Dosing Weight 71.545, kg, Start date: 10/23/16 16:00:00 CDT, Duration: 30 day, Stop date: 11/22/16 9:00:00 CDT Notes: (Same As: Imuran) Start Date: 10/23/16 Stop Date: 10/24/16 Status: DiscontinuedazaTHIOprine 50 mg oral tablet 50 mg=1 tab, PO, Daily, 0 Refill(s) Start Date: 10/24/16 Status: OrderedazaTHIOprine 50 mg oral tablet 100 mg=2 tab, PO, Daily, # 60 tab, 0 Refill(s) Start Date: 10/16/16 Status: Orderedcalcium chloride (ANES) Route: IV, Drug form: INJ, ONCE, Stop date: 10/22/16 16:35:00 CDT Start Date: 10/22/16 Stop Date: 10/22/16 Status: CompletedceFAZolin (ANES) (ANES) Route: IV, Drug form: INJ, Start date: 10/22/16 11:30:00 CDT, Stop date: 12:30:00 CDT Start Date: 10/22/16 Stop Date: 10/22/16 Status: CompletedceFAZolin (ANES) (ANES) Route: IV, Drug form: INJ, Start date: 10/22/16 14:55:00 CDT, Stop date: 15:55:00 CDT Start Date: 10/22/16 Stop Date: 10/22/16 Status: Completedcelecoxib 200 mg, 1 cap, Route: PO, Drug form: CAP, BID, Dosing Weight 71.545, kg, Start date: 10/24/16 9:00:00 CDT, Duration: 30 day, Stop date: 11/22/16 17:00:00 CDT Notes: NSAID. Please check indication. Not for seizure. (Same As: CeleBREX) Start Date: 10/24/16 Stop Date: 10/24/16 Status: Discontinuedcelecoxib 200 mg oral capsule 200 mg=1 cap, PO, BID, 0 Refill(s) Start Date: 10/24/16 Status: Orderedclindamycin 900 mg, 50 mL, Route: IVPB, Drug form: INJ, [id number], Dosing Weight 64.545, kg, Start date: 10/22/16 18:00:00 CDT, Duration: 5 day, Stop date: 10/27/16 10:00: 00 CDT, ABX Indication: Surgical Prophylaxis Start Date: 10/22/16 Stop Date: 10/24/16 Status: DiscontinuedDemerol HCl 50 mg, Route: IV, Q10Min, Dosing Weight 64.545, kg, PRN Pain Score 7-10, Start date: 10/22/16 17:55:00 CDT, Duration: 4 day, Stop date: 10/26/16 17:54:00 CDT Start Date: 10/22/16 Stop Date: 10/23/16 Status: Discontinueddexamethasone 4 mg, 1 mL, Route: IVP, Drug form: INJ, Q6H, Dosing Weight 64.545, kg, Start date: 10/22/16 18:00:00CDT, Duration: 1 day, Stop date: 10/23/16 12:00:00 CDT Notes: Concentration: 4mg/ml Start Date: 10/22/16 Stop Date: 10/23/16 Status: Pending Completedexamethasone (ANES) Route: IV, Drug form: INJ, ONCE, Stop date: 10/22/16 15:30:00 CDT Start Date: 10/22/16 Stop Date: 10/22/16 Status: CompletedDilaudid 0.2 mg, 0.2 mL, Route: IV, Drug form: INJ, Q4H, Dosing Weight 71.545, kg, PRN Pain Score 4-6, Priority: NOW, Start date: 10/23/16 6:41:00 CDT, Duration: 30 day, Stop date: 11/22/16 6:40:00 CDT Start Date: 10/23/16 Stop Date: 10/24/16 Status: DiscontinuedDULoxetine 60 mg, 2 cap, Route: PO, Drug form: DRC, Daily, Dosing Weight 71.545, kg, Start date: 10/24/16 9:00:00 CDT, Duration: 30 day, Stop date: 11/22/16 9:00:00 CDT Notes: (Same as: Cymbalta) (Do Not Crush) Start Date: 10/24/16 Stop Date: 10/23/16 Status: CanceledDuloxetine Duloxetine, 60 mg, Drug form: MISC, Route: PO, Daily, 10/24/16 9:00:00 CDT, Duration: 30 day, Stop date: 11/22/16 9:00:00 CDT Start Date: 10/24/16 Stop Date: 10/24/16 Status: DiscontinuedePHEDrine (ANES) Route: IV, Drug form: INJ, ONCE, Stop date: 10/22/16 12:42:00 CDT Start Date: 10/22/16 Stop Date: 10/22/16 Status: Completedfamotidine (ANES) Route: IV, Drug form: INJ, ONCE, Stop date: 10/22/16 14:43:00 CDT Start Date: 10/22/16 Stop Date: 10/22/16 Status: CompletedfentaNYL 50 microgram, Route: IV, Q5Min, Dosing Weight 64.545, kg, PRN Pain Score 7-10, Start date: 10/22/16 17:55:00 CDT, Duration: 30 day, Stop date: 11/21/16 17:54: 00 CDT Start Date: 10/22/16 Stop Date: 10/23/16 Status: DiscontinuedfentaNYL (ANES) Route: IV, Drug form: INJ, ONCE, Stop date: 10/22/16 12:32:00 CDT Start Date: 10/22/16 Stop Date: 10/22/16 Status: CompletedfentaNYL (ANES) Route: IV, Drug form: INJ, ONCE, Stop date: 10/22/16 17:33:00 CDT Start Date: 10/22/16 Stop Date: 10/22/16 Status: CompletedfentaNYL (ANES) Route: IV, Drug form: INJ, ONCE, Stop date: 10/22/16 17:46:00 CDT Start Date: 10/22/16 Stop Date: 10/22/16 Status: Completedgabapentin 800 mg oral tablet 800 mg=1 tab, PO, TID, # 270 tab, 0 Refill(s) Start Date: 10/16/16 Status: OrderedhydrALAZINE 10 mg, Route: IV, PRN, Dosing Weight 64.545, kg, PRN Elevated BP, Start date: 17:55:00 CDT,Duration: 30 day, Stop date: 11/21/16 17:54:00 CDT Start Date: 10/22/16 Stop Date: 10/23/16 Status: Discontinuedhydrochlorothiazide-triamterene 25 mg-37.5 mg oral tablet 1 tab, Route: PO, Drug Form: TAB, Dosing Weight 71.545, kg, Daily, Start date: 10/23/16 16:00:00 CDT, Duration: 30 day, Stop date: 11/22/16 9:00:00 CDT Notes: (triamterene-hydrochlorothiazide 37.5-25 mg TAB)(Same As: Maxzide-25) Start Date: 10/23/16 Stop Date: 10/24/16 Status: Discontinuedhydromorphone (ANES) Route: IV, Drug form: INJ, ONCE, Stop date: 10/22/16 13:32:00 CDT Start Date: 10/22/16 Stop Date: 10/22/16 Status: CompletedLactated Ringers 1,000 mL 1,000 mL, Rate: 25 ml/hr, Infuse over: 40 hr, Route: IV, Dosing Weight 64.545 kg , Total Volume: 1,000, Start date: 10/22/16 9:26:00 CDT, Duration: 30 day, Stop date: 11/21/16 9:25:00 CDT Start Date: 10/22/16 Stop Date: 10/24/16 Status: Discontinuedlidocaine (ANES) Route: IV, Drug form: INJ, ONCE, Stop date: 10/22/16 12:32:00 CDT Start Date: 10/22/16 Stop Date: 10/22/16 Status: CompletedLR 1000 mL INJ (ANES) Route: IV, Total Volume: 1,000, Start date: 10/22/16 11:04:00 CDT, Stop date: 12:04:00 CDT Start Date: 10/22/16 Stop Date: 10/22/16 Status: Completedmidazolam (ANES) Route: IV, Drug form: SOLN, ONCE, Stop date: 10/22/16 12:57:00 CDT Start Date: 10/22/16 Stop Date: 10/22/16 Status: Completedmorphine Sulfate 2 mg, 1 mL, Route: IVP, Drug form: INJ, Q2H, Dosing Weight 64.545, kg, PRN Pain Score 7-10, Start date: 10/22/16 17:46:00 CDT, Duration: 30 day, Stop date: 10/03 17:45:00 CDT Notes: (Same as:MORPhine Sulfate) Start Date: 10/22/16 Stop Date: 10/24/16 Status: DiscontinuedNorco 10/325 oral tablet 2 tab, Route: PO, Drug Form: TAB, Dosing Weight 64.545, kg, Q4H, PRN Pain Score 4-6, Start date: 10/22/16 17:47:00 CDT, Duration: 30 day, Stop date: 11/21/16 17 :46:00 CDT Notes: Do not exceed 4gm/day of acetaminophen. (Same as: Beth[place] 325/10) Start Date: 10/22/16 Stop Date: 10/24/16 Status: Discontinuednorepinephrine (ANES) Route: IV, Drug form: INJ, ONCE, Stop date: 10/22/16 12:37:00 CDT Start Date: 10/22/16 Stop Date: 10/22/16 Status: Completednorepinephrine (ANES) Route: IV, Drug form: INJ, ONCE, Stop date: 10/22/16 17:33:00 CDT Start Date: 10/22/16 Stop Date: 10/22/16 Status: Completedondansetron (ANES) Route: IV, Drug form: INJ, ONCE, Stop date: 10/22/16 17:16:00 CDT Start Date: 10/22/16 Stop Date: 10/22/16 Status: Completedphenylephrine (ANES) Route: IV, Drug form: INJ, ONCE, Stop date: 10/22/16 17:31:00 CDT Start Date: 10/22/16 Stop Date: 10/22/16 Status: CompletedProAir HFA 90 mcg/inh inhalation aerosol with adapter 2 puff, Route: INHALATION, Drug Form: AERO/A, Dosing Weight 71.545, kg, RQID, Start date: 10/23/16 19:00:00 CDT, Duration: 30 day, Stop date: 11/22/16 15:00: 00 CDT Notes: Same as: Ventolin HFAWASTE: Aerosol - Return to Pharmacy Start Date: 10/23/16 Stop Date: 10/24/16 Status: DiscontinuedProAir HFA 90 mcg/inh inhalation aerosol with adapter 2 puff, Route: INHALATION, Drug Form: AERO/A, Dosing Weight 71.545, kg, RQID, Start date: 10/23/16 13:00:00 CDT, Duration: 30 day, Stop date: 11/22/16 11:00: 00 CDT Notes: Same as: Ventolin HFAWASTE: Aerosol - Return to Pharmacy Start Date: 10/23/16 Stop Date: 10/23/16 Status: Discontinuedpromethazine 6.25 mg, Route: IVPB, PRN, Dosing Weight 64.545, kg, PRN as needed for nausea/ vomiting, Start date: 10/22/16 17:55:00 CDT, Duration: 30 day, Stop date: 17:54:00 CDT Start Date: 10/22/16 Stop Date: 10/23/16 Status: Discontinuedpromethazine + sodium chloride 0.9% INJ 50 mL 12.5 mg, 0.5 mL, Route: IVPB, Q6H, Dosing Weight 71.545, kg, PRN as needed for nausea/vomiting, Priority: NOW, Start date: 10/23/16 6:41:00 CDT, Duration: 30 day, Stop date: 11/22/16 6:40:00 CDT Notes: Do not give IV push. (Same as: Phenergan) Start Date: 10/23/16 Stop Date: 10/24/16 Status: Discontinuedpropofol (ANES) Route: IV, Drug form: INJ, ONCE, Stop date: 10/22/16 12:32:00 CDT Start Date: 10/22/16 Stop Date: 10/22/16 Status: CompletedRobaxin 500 mg, 1 tab, Route: PO, Drug form: TAB, TID, Dosing Weight 64.545, kg, Start date: 10/23/16 9:00:00 CDT, Duration: 30 day, Stop date: 11/21/16 17:00:00 CDT Notes: (Same as:Robaxin) Start Date: 10/23/16 Stop Date: 10/24/16 Status: Discontinuedrocuronium (ANES) Route: IV, Drug form: INJ, ONCE, Stop date: 10/22/16 12:32:00 CDT Start Date: 10/22/16 Stop Date: 10/22/16 Status: CompletedSymbicort 160/4.5 inhalation aerosol with adapter 2 inhalation, Route: INHALATION, Drug Form: AERO/A, Dosing Weight 71.545, kg, RBID, Start date: 10/23/16 13:19:00 CDT, Stop date: 11/22/16 8:00:00 CDT Notes: (Same as: Symbicort)WASTE: Aerosol - Return to Pharmacy Start Date: 10/23/16 Stop Date: 10/24/16 Status: Discontinuedtramadol 50 mg oral tablet 50 mg, 1 tab, Route: PO, Drug form: TAB, Q6H, Dosing Weight 71.545, kg, PRN Pain Score 4-6, Start date: 10/23/16 11:53:00 CDT, Stop date: 11/22/16 11:52:00 CDT Notes: Not to exceed 400mg/day. (Same As: Ultram) Start Date: 10/23/16 Stop Date: 10/24/16 Status: DiscontinuedZofran 4 mg, 2 mL, Route: IV, Drug form: INJ, Q6H, Dosing Weight 71.545, kg, PRN as needed for nausea/vomiting, Priority: NOW, Start date: 10/23/16 0:07:00 CDT, Duration: 30 day, Stop date: 11/22/16 0:06:00 CDT Notes: (Same as: Susanna) MEDICATION WASTE Product Size: 4 mgProduct Wasted: ___ mg Start Date: 10/23/16 Stop Date: 10/24/16 Status: Discontinued Results ELECTROLYTES Most recent to oldest [Reference Range]: 1 2 Sodium Lvl [135-145 mEq/L] 136 mEq/L (10/16/16 11:44 AM) Potassium Lvl [3.5-5.1 mEq/L] 3.7 mEq/L (10/16/16 11:44 AM) Chloride Lvl [95-109 mEq/L] 96 mEq/L (10/16/16 11:44 AM) CO2 [24-32 mEq/L] 30 mEq/L (10/16/16 11:44 AM) AGAP [10.0-20.0 mEq/L] 13.7 mEq/L (10/16/16 11:44 AM) CHEM PANEL Most recent to oldest [Reference Range]: 1 2 Creatinine Lvl [0.50-1.40 mg/dL] 0.79 mg/dL (10/16/16 11:44 AM) eGFR 80 mL/min/1.73m2 1 *NA* (10/16/16 11:44 AM) BUN [7-22 mg/dL] 20 mg/dL (10/16/16 11:44 AM) Glucose Lvl [70-99 mg/dL] 90 mg/dL (10/16/16 11:44 AM) Calcium Lvl [8.5-10.5 mg/dL] 9.4 mg/dL (10/16/16 11:44 AM) 1Result Comment: The eGFR is calculated using the CKD-EPI formula. In most young , healthy individualsthe eGFR will be >90 mL/min/1.73m2. The eGFR declines with age. An eGFR of 60-89 may be normal in some populations, particularly the elderly, for whom the CKD-EPI formula has not been extensively validated. Use of the eGFR is not recommended in the following populations: Individuals with unstable creatinine concentrations, including patients and those with serious co-morbid conditions. Patients with extremes in muscle mass or diet. The data above are obtained from the National Kidney Disease Education Program ( NKDEP) which additionally recommends that when the eGFR is used in patients with extremes of body mass index for purposesof drug dosing, the eGFR should be multiplied by the estimated BMI.URINE AND STOOL Most recent to oldest [Reference Range]: 1 2 UA Turbidity [Clear] Clear Clear (10/22/16 9:55 AM) (10/16/16:44 AM) UA Color Colorless Ltyellow *NA* *NA* (10/22/16 9:55 AM) (10/16/16:44 AM) UA pH [5.0-8.0] 8.0 7.0 (10/22/16 9:55 AM) (10/16/16:44 AM) UA Spec Grav [<=1.030] 1.004 1.012 (10/22/16 9:55 AM) (10/16/16:44 AM) UA Glucose [Negative mg/dL] Negative mg/dL Negative mg/dL *NA* *NA* (10/22/16 9:55 AM) (10/16/16 11:44 AM) UA Blood [Negative] Moderate Small *ABN* *ABN* (10/22/16 9:55 AM) (10/16/16:44 AM) UA Ketones [Negative mg/dL] Negative mg/dL Negative mg/dL *NA* *NA* (10/22/16 9:55 AM) (10/16/16 11:44 AM) UA Protein [Negative mg/dL] Negative mg/dL Negative mg/dL (10/22/16 9:55 AM) (10/16/16 11:44 AM) UA Urobilinogen [0.1-1.0 mg/dL] <=1.0 mg/dL <=1.0 mg/dL *NA* *NA* (10/22/16 9:55 AM) (10/16/16 11:44 AM) UA Bili [Negative] Negative Negative *NA* *NA* (10/22/16 9:55 AM) (10/16/16 11:44 AM) UA Leuk Est [Negative] Negative Moderate (10/22/16 9:55 AM) *ABN* (5/30/17 11:44 AM) UA Nitrite [Negative] Negative Negative (10/22/16 9:55 AM) (10/16/16 11:44 AM) UA WBC [0-5 /HPF] 2 /HPF 32 /HPF (10/22/16 9:55 AM) *HI* (10/16/16 11:44 AM) UA RBC [0-2 /HPF] 1 /HPF 2 /HPF (10/22/16 9:55 AM) (10/16/16 11:44 AM) UA Bacteria [None Seen /HPF] Moderate /HPF *ABN* (10/16/16 11:44 AM) UA Sq Epi [Few /LPF] Occasional /LPF Occasional /LPF *NA* *NA* (10/22/16 9:55 AM) (10/16/16 11:44 AM) HEMATOLOGY Most recent to oldest [Reference Range]: 1 2 WBC [3.7-10.4 K/CMM] 8.3 K/CMM (10/16/16 11:44 AM) RBC [4.20-5.40 M/CMM] 4.24 M/CMM (10/16/16 11:44 AM) Hgb [12.0-16.0 g/dL] 13.8 g/dL (10/16/16 11:44 AM) Hct [36.0-48.0 %] 39.9 % (10/16/16 11:44 AM) MCV [80.0-98.0 fL] 94.2 fL (10/16/16 11:44 AM) MCH [27.0-31.0 pg] 32.5 pg *HI* (10/16/16 11:44 AM) MCHC [32.0-36.0 g/dL] 34.5 g/dL (10/16/16 11:44 AM) RDW [11.5-14.5 %] 13.3 % (10/16/16 11:44 AM) Platelet [133-450 K/CMM] 235 K/CMM (10/16/16 11:44 AM) MPV [7.4-10.4 fL] 8.4 fL (10/16/16 11:44 AM) Segs [45.0-75.0 %] 62.3 % (10/16/16 11:44 AM) Lymphocytes [20.0-40.0 %] 23.2 % (10/16/16 11:44 AM) Monocytes [2.0-12.0 %] 13.3 % *HI* (10/16/16 11:44 AM) Eosinophils [0.0-4.0 %] 0.4 % (10/16/16 11:44 AM) Basophils [0.0-1.0 %] 0.8 % (10/16/16 11:44 AM) Segs-Bands # [1.5-8.1 K/CMM] 5.2 K/CMM (10/16/16 11:44 AM) Lymphocytes # [1.0-5.5 K/CMM] 1.9 K/CMM (10/16/16 11:44 AM) Monocytes # [0.0-0.8 K/CMM] 1.1 K/CMM *HI* (10/16/16 11:44 AM) Basophils # [0.0-0.2 K/CMM] 0.1 K/CMM (10/16/16 11:44 AM) PT [12.0-14.7 seconds] 12.2 seconds (10/16/16 11:44 AM) INR [0.85-1.17] 0.89 (10/16/16 11:44 AM) PTT [22.9-35.8 seconds] 32.7 seconds (10/16/16 11:44 AM) Immunizations Given and Recorded Vaccine Date Status Refusal Reason pneumococcal 23-valent vaccine1 10/22/16 Given 1Admin Note: got in 12/19/2015 Procedures Procedure Date Related Diagnosis Body Site Operation 2016 Kidney transplantation1 Laminectomy and discectomy 1auto transplant Social History Social History Type Response Substance Abuse Use: None. Sexual Sexually active: No. Exercise Exercise duration: 40. Exercise frequency: 3-4 times/week. Exercise type: Walking. Employment/School Status: Retired. Alcohol Never Smoking Status Never smoker; Exposure to Tobacco Smoke None; Cigarette Smoking Last 365 Days No; Reg Smoking Cessation Counseling No Assessment and Plan No data available for this section
--- OUTSIDE RECORDS SUMMARY | 2019-01-24 10:33 | XMS REPORT | Summary of Care ---
:[address] [facility] Address [address] [place], [place] [address]- Encounter HQ Mynor(FIN) [id number] Date(s): 05/10/15 - 05/10/15 [facility] [address] [place] [address]- Discharge Disposition: Home Attending Physician: Otto Lopez MD Referring Physician: Otto Lopez MD Vital Signs Most recent to oldest 1 2 3 [Reference Range]: Height 170.18 cm (05/02/15 1:11 PM) Temperature Oral 97.6 DegF [96.4-99.1 DegF] (05/02/15 2:00 PM) Blood Pressure 124/60 mmHg 129/69 mmHg 146/83 mmHg [90-140/60-90 mmHg] (05/10/15 12:45 PM) (05/10/15 11:45 AM) *HI* (05/10/15 11:30 AM) Respiratory Rate [14-20 13 BRMIN 17 BRMIN 13 BRMIN BRMIN] *LOW* (05/10/15 11:30 AM) *LOW* (05/10/15 11:45 AM) (05/10/15 11:15 AM) Peripheral Pulse Rate 70 bpm 75 bpm [60-100 bpm] (05/10/15 7:06 AM) (05/02/15 2:00 PM) Weight 60.909 kg (05/02/15 1:11 PM) Body Mass Index 21.03 m2 (05/02/15 1:11 PM) Problem List Condition Effective Dates Status Health Status Informant Arthritis(Confirmed)1 Resolved Chronic rheumatic Resolved arthritis(Confirmed) COPD(Confirmed) Resolved LARA (dyspnea on exertion)(Confirmed) Active Headache(Confirmed) Resolved Hx of kidney transplant(Confirmed)2 Resolved Hypertension(Confirmed) Resolved Lumbar radiculopathy(Confirmed) Active m - Multiple tumors(Confirmed)3 Resolved Pneumonia(Confirmed) Resolved [id number] left Allergies, Adverse Reactions, Alerts Substance Reaction Severity Status NKDA Active Medications acetaminophen 1,000 mg, Route: IVPB, Drug form: INJ, ONCE, Dosing Weight 60.909, kg, PRN Pain Score 1-3, Start date: 05/10/15 11:01:00, Duration: 1 doses or times, Stop date : Limited # of times Start Date: 05/10/15 Stop Date: 05/10/15 Status: DiscontinuedAncef 1 gm, Route: IVPB, ONCE, Dosing Weight 60.909, kg, Start date: 05/10/15 7:56:00 , Stop date: 157:56:00 Start Date: 05/10/15 Stop Date: 05/10/15 Status: Completedbaclofen 10 mg oral tablet 10 mg=1 tab, PO, TID, # 270 tab, 0 Refill(s) Start Date: 05/02/15 Status: Orderedcalcium carbonate 0 Refill(s) Start Date: 05/02/15 Status: Orderedcelecoxib 200 mg oral capsule 200 mg=1 cap, PO, BID, # 30 cap, 0 Refill(s) Start Date: 05/02/15 Status: OrderedDULoxetine 30 mg oral delayed release capsule 30 mg=1 cap, PO, Daily, # 30 cap, 0 Refill(s) Start Date: 05/02/15 Status: OrderedfentaNYL 50 microgram, Route: IVP, Q5Min, Dosing Weight 60.909, kg, PRN Pain Score 7-10, Start date: 05/10/1511:01:00, Duration: 2 doses or times, Stop date: Limited # of times Start Date: 05/10/15 Stop Date: 05/10/15 Status: DiscontinuedFish Oil 1200 mg oral capsule 1,200 mg=1 cap, PO, TID, 0 Refill(s) Start Date: 05/02/15 Status: Orderedflumazenil 0.2 mg, Route: IVP, PRN, Dosing Weight 60.909, kg, PRN Benzodiazepine Reversal, Initial dose, Start date: 05/10/15 11:01:00, Duration: 30 day, Stop date: 11:00:00 Start Date: 05/10/15 Stop Date: 05/10/15 Status: Discontinuedgabapentin 600 mg oral tablet 600 mg=1 tab, PO, TID, # 90 tab, 0 Refill(s) Start Date: 05/02/15 Status: Orderedhydrochlorothiazide-triamterene 25 mg-37.5 mg oral tablet 1 tab, PO, Daily, # 30 tab, 0 Refill(s) Start Date: 05/02/15 Status: Orderedhydromorphone 0.5 mg, Route: IVP, Q5Min, Dosing Weight 60.909, kg, PRN Pain Score 7-10, Start date: 05/10/15 11:01:00, Duration: 4 doses or times, Stop date: Limited # of times Start Date: 05/10/15 Stop Date: 05/10/15 Status: DiscontinuedLactated Ringers Injection IV 1000 mL 1,000 mL, Rate: 25 ml/hr, Infuse over: 40 hr, Route: IV, Dosing Weight 60.909 kg , Total Volume: 1,000, Start date: 05/10/15 9:17:00, Duration: 30 day, Stop date : 06/09/15 9:16:00 Start Date: 05/10/15 Stop Date: 05/10/15 Status: DiscontinuedLactated Ringers Injection IV 1000 mL 1,000 mL, Rate: 25 ml/hr, Infuse over: 40 hr, Route: IV, Dosing Weight 60.909 kg , Total Volume: 1,000, Start date: 05/10/15 7:04:00, Duration: 30 day, Stop date : 06/09/15 7:03:00 Start Date: 05/10/15 Stop Date: 05/10/15 Status: Discontinuedleflunomide 10 mg oral tablet 10 mg=1 tab, PO, Daily, # 30 tab, 0 Refill(s) Start Date: 05/02/15 Status: Orderedmagnesium oxide 400 mg=1 tab, PO, BID, # 20 tab, 0 Refill(s) Start Date: 05/02/15 Stop Date: 05/12/15 Status: Orderedmeperidine 12.5 mg, Route: IVP, Q30Min, Dosing Weight 60.909, kg, PRN Other -See Comment, For shivering, Start date: 05/10/15 11:01:00, Duration: 2 doses or times, Stop date: Limited # of times Start Date: 05/10/15 Stop Date: 05/10/15 Status: Discontinuedmultivitamin with minerals 0 Refill(s) Start Date: 05/02/15 Status: Orderednaloxone 0.04 mg, Route: IVP, Q2MIN, Dosing Weight 60.909, kg, PRN Narcotic Reversal, Start date: 05/10/15 11:01:00, Duration: 8 doses or times, Stop date: Limited # of times Start Date: 05/10/15 Stop Date: 05/10/15 Status: Discontinuedondansetron 4 mg, Route: IVP, ONCE, Dosing Weight 60.909, kg, PRN Nausea & Vomiting, Start date: 05/10/15 11:01:00 Start Date: 05/10/15 Stop Date: 05/10/15 Status: CompletedoxyCODONE 5 mg, Route: PO, Drug form: TAB, Q4H, Dosing Weight 60.909, kg, PRN Pain Score 4 -6, Start date: 05/10/15 11:01:00, Duration: 30 day, Stop date: 06/09/15 11:00: 00 Start Date: 05/10/15 Stop Date: 05/10/15 Status: DiscontinuedpredniSONE 5 mg oral tablet 5 mg=1 tab, PO, Daily, Give with food., # 30 tab, 0 Refill(s) Start Date: 05/02/15 Stop Date: 06/01/15 Status: OrderedProbiotic Formula 1 cap, PO, Daily, 0 Refill(s) Start Date: 05/02/15 Status: OrderedRemicade 100 mg intravenous injection IV, 0 Refill(s) Start Date: 05/02/15 Status: OrderedSymbicort 160/4.5 inhalation aerosol with adapter 2 puff, INHALER, BID, # 1 ea, 3 Refill(s) Start Date: 05/02/15 Status: Orderedtramadol 50 mg oral tablet 50 mg=1 tab, PO, BID, # 180 tab, 1 Refill(s) Start Date: 05/02/15 Stop Date: 07/31/15 Status: OrderedTylenol Extra Strength 500 mg oral tablet 1,000 mg=2 tab, PO, Q4H, PRN Pain, # 120 tab, 0 Refill(s) Start Date: 05/02/15 Stop Date: 05/12/15 Status: OrderedVentolin HFA 2 puff, INHALATION, PRN, 0 Refill(s) Start Date: 05/02/15 Status: OrderedZinc 140 mg, PO, Daily, 0 Refill(s) Start Date: 05/02/15 Status: OrderedZyrTEC 10 mg oral tablet 10 mg=1 tab, PO, Daily, # 30 tab, 0 Refill(s) Start Date: 05/02/15 Stop Date: 06/01/15 Status: Ordered Results ELECTROLYTES Most recent to oldest [Reference Range]: 1 Sodium Lvl [135-145 mEq/L] 131 mEq/L *LOW* (05/02/15 1:44 PM) Potassium Lvl [3.5-5.1 mEq/L] 3.7 mEq/L (05/02/15 1:44 PM) Chloride Lvl [95-109 mEq/L] 94 mEq/L *LOW* (05/02/15 1:44 PM) CO2 [24-32 mEq/L] 30 mEq/L (05/02/15 1:44 PM) AGAP [10.0-20.0 mEq/L] 10.7 mEq/L (05/02/15 1:44 PM) HEMATOLOGY Most recent to oldest [Reference Range]: 1 WBC [3.7-10.4 K/CMM] 7.6 K/CMM (05/02/15 1:46 PM) RBC [4.20-5.40 M/CMM] 4.53 M/CMM (05/02/15 1:46 PM) Hgb [12.0-16.0 g/dL] 14.1 g/dL (05/02/15 1:46 PM) Hct [36.0-48.0 %] 41.8 % (05/02/15 1:46 PM) MCV [80.0-98.0 fL] 92.2 fL (05/02/15 1:46 PM) MCH [27.0-31.0 pg] 31.2 pg *HI* (05/02/15 1:46 PM) MCHC [32.0-36.0 g/dL] 33.9 g/dL (05/02/15 1:46 PM) RDW [11.5-14.5 %] 12.4 % (05/02/15 1:46 PM) Platelet [133-450 K/CMM] 206 K/CMM (05/02/15 1:46 PM) MPV [7.4-10.4 fL] 7.7 fL (05/02/15 1:46 PM) Segs [45.0-75.0 %] 70.4 % (05/02/15 1:46 PM) Lymphocytes [20.0-40.0 %] 21.5 % (05/02/15 1:46 PM) Monocytes [2.0-12.0 %] 7.3 % (05/02/15 1:46 PM) Eosinophils [0.0-4.0 %] 0.2 % (05/02/15 1:46 PM) Basophils [0.0-1.0 %] 0.6 % (05/02/15 1:46 PM) Segs-Bands # [1.5-8.1 K/CMM] 5.3 K/CMM (05/02/15 1:46 PM) Lymphocytes # [1.0-5.5 K/CMM] 1.6 K/CMM (05/02/15 1:46 PM) Monocytes # [0.0-0.8 K/CMM] 0.6 K/CMM (05/02/15 1:46 PM) Immunizations No data available for this section Procedures Procedure Date Related Diagnosis Body Site Kidney transplantation1 1auto transplant Social History Social History Type Response Smoking Status Never smoker; Exposure to Tobacco Smoke None; Cigarette Smoking Last 365 Days No; Reg Smoking Cessation Counseling No Assessment and Plan No data available for this section
[2019-01-24] MEDS ORDERED: TRAMADOL HCL 50 MG TAB ONE (12:59)
--- NOTE | 2019-01-24 15:13 | RAD REPORT ---
EXAM DESCRIPTION: US - Extrem Venous W Compress Bladimir - 01/24/2019 2:28 pm CLINICAL HISTORY: Leg pain and swelling COMPARISON: None. TECHNIQUE: Real-time sonographic evaluation of the bilateral lower extremity common femoral, superfi cial femoral, popliteal and posterior tibial veins was performed. FINDINGS: Normal compressibility, flow augmentation, phasic flow and spontaneous flow are identified in the left and right lower extremity common femoral, superficial femoral, popliteal and posterior t ibial veins. No intraluminal filling defects seen. IMPRESSION: No DVT in either lower extremity.
--- NOTE | 2019-01-24 15:15 | RAD REPORT ---
EXAM DESCRIPTION: US - Lower Extremity Artery Uni Ltd - 01/24/2019 2:28 pm CLINICAL HISTORY: PAIN Right lower extremity pain COMPARISON: No comparisons TECHNIQUE: Doppler evaluation of the right lower extremity arterial tree performed. Waveforms and ve locity values were obtained along with visual inspection. FINDINGS: No occlusion or flow restricting lesion identifiable. No significant atherosclerotic beasley es present. Triphasic waveform patterns were seen in the common femoral and superficial femoral arter ies on the right. Biphasic waveform pattern seen from the popliteal artery to the ankle. IMPRESSION: No occlusion or flow restricting lesion in the right lower extremity. No significant vas cular finding.
--- NOTE | 2019-01-24 15:47 | ER ---
Nurse's Notes [facility] Name: Marcie Chaves Age: 63 yrs Sex: Female : 1955 Arrival Date: 01/24/2019 Time: 10:34 Bed 15 Private MD: Diagnosis: Pain in right ankle and joints of right foot Presentation: 01/24 10:53 Presenting complaint: Patient states: right foot pain x 4 days. Pt c/o right foot aa5 swelling and redness. Pt states "Maybe is my RA". Transition of care: patient was not received from another setting of care. Onset of symptoms was January 2019. Risk Assessment: Do you want to hurt yourself or someone else? Patient reports no desire to harm self or others. Initial Sepsis Screen: Does the patient meet any 2 criteria? No. Patient's initial sepsis screen is negative. Does the patient have a suspected source of infection? No. Patient's initial sepsis screen is negative. Care prior to arrival: None. 10:53 Acuity: CAM 4 aa5 10:53 Method Of Arrival: Ambulatory aa5 Historical: - Allergies: 10:56 Methotrexate; aa5 - Home Meds: 15:52 Actemra intravenous intravenous [Active]; azathioprine 50 mg Oral tab 2 tabs daily rb1 [Active]; celecoxib 200 mg Oral cap 1 cap 2 times per day [Active]; gabapentin 800 mg oral tab 1 tab 3 times per day [Active]; duloxetine 60 mg oral cpDR 1 cap once daily [Active]; tramadol 50 mg Oral tab 1 tab twice a day PRN [Active]; baclofen 10 mg Oral tab 1 tab 3 times per day [Active]; prednisone 5 mg Oral tab 1 tab once daily [Active]; triamterene-hydrochlorothiazid 37.5-25 mg Oral cap 1 cap once daily [Active]; pravastatin 20 mg oral tab 1 tab once daily [Active]; Symbicort inhalation inhalation 1 puffs 2 times per day [Active]; Ventolin Rotahaler/Rotacaps Inhl four times a day [Active]; Zyrtec 10 mg Oral tab 1 tab once daily for PRN [Active]; Tylenol Extra Strength 500 mg oral tab 2 tabs 2-3 times per day [Active]; Probiotics [Active]; Vitamin D3 2,000 unit oral cap daily [Active]; kbsispu-hjezprkit-kzjq oral tab 2 tabs daily [Active]; multivitamin hair, skin, and nails [Active]; cranberry oral oral [Active]; CoQ-10 oral oral [Active]; diclofenac gel [Active]; pilocarpine 5 mg 1 tab daily [Active]; - PMHx: 10:56 RA; COPD; Hypertension; Hyperlipidemia; aa5 - PSHx: 10:56 Back sx; Left Kidne (tumors); aa5 - Immunization history:: Pneumococcal vaccine is up to date, Flu vaccine is up to date. - Social history:: Smoking status: Patient/guardian denies using tobacco. - Ebola Screening: : No symptoms or risks identified at this time. Screenin:40 Abuse screen: Denies threats or abuse. Nutritional screening: No deficits noted. rb1 Tuberculosis screening: No symptoms or risk factors identified. Fall Risk None identified. Assessment: 11:40 General: Appears in no apparent distress. comfortable, Behavior is calm, cooperative, rb1 Denies fever. Pain: Complains of pain in right foot Pain currently is 7 out of 10 on a pain scale. Pain began x 4 days Aggravated by increased activity. Neuro: Level of Consciousness is awake, alert, obeys commands, Oriented to person, place, time, situation. Cardiovascular: Capillary refill < 3 seconds is brisk toes. Respiratory: Airway is patent Respiratory effort is even, unlabored, Respiratory pattern is regular, symmetrical. GI: No signs and/or symptoms were reported involving the gastrointestinal system. : No signs and/or symptoms were reported regarding the genitourinary system. Derm: Skin is red, right foot. Musculoskeletal: Range of motion: intact in all extremities. 12:40 Reassessment: Patient appears in no apparent distress at this time. No changes from rb1 previously documented assessment. 13:30 Reassessment: Patient appears in no apparent distress at this time. Patient and/or rb1 family updated on plan of care and expected duration. Pain level reassessed. Patient is alert, oriented x 3, equal unlabored respirations, skin warm/dry/pink. 14:30 Reassessment: Patient appears in no apparent distress at this time. Patient and/or rb1 family updated on plan of care and expected duration. Pain level reassessed. Patient is alert, oriented x 3, equal unlabored respirations, skin warm/dry/pink. 15:28 Reassessment: Patient appears in no apparent distress at this time. No changes from rb1 previously documented assessment. 16:12 Reassessment: Patient appears in no apparent distress at this time. Patient and/or rb1 family updated on plan of care and expected duration. Pain level reassessed. Patient is alert, oriented x 3, equal unlabored respirations, skin warm/dry/pink. Vital Signs: 10:56 BP 162 / 82; Pulse 86; Resp 18 S; Temp 98.8(TE); Pulse Ox 99% on R/A; Weight 63.5 kg aa5 (R); Height 5 ft. 7 in. (170.18 cm) (R); Pain 7/10; 12:00 BP 149 / 89; Pulse 83; Resp 17; Pulse Ox 99% on R/A; Pain 7/10; rb1 13:00 BP 145 / 71; Pulse 81; Resp 16; Pulse Ox 96% on R/A; Pain 7/10; rb1 13:57 BP 139 / 70; Pulse 90; Resp 18; Temp 98(O); Pulse Ox 99% on R/A; kj1 14:45 BP 146 / 67; Pulse 79; Resp 16; Pulse Ox 100% on R/A; Pain 4/10; rb1 15:52 BP 150 / 69; Pulse 90; Resp 18; Pulse Ox 96% on R/A; kj1 10:56 Body Mass Index 21.93 (63.50 kg, 170.18 cm) aa5 ED Course: 10:34 Patient arrived in ED. as 10:53 Arm band placed on. aa5 10:54 Triage completed. aa5 11:36 Dunia Dukes, RN is Primary Nurse. rb1 11:40 Patient has correct armband on for positive identification. Bed in low position. Call rb1 light in reach. Side rails up X 1. Pulse ox on. NIBP on. Warm blanket given. 11:42 Usha Naylor FNP-C is PHCP. snw 11:42 Lucas Watters MD is Attending Physician. snw 14:04 PHCP role handed off by Usha Naylor FNP-C rh1 14:04 Marcie Jacome NP is PHCP. rh1 14:19 US Lower Extremity Artery Uni Ltd In Process Unspecified. EDMS 14:19 Extrem Venous W Compress Bladimir In Process Unspecified. EDMS 16:13 No provider procedures requiring assistance completed. Patient did not have IV access rb1 during this emergency room visit. Administered Medications: 12:59 Drug: UltRAM 50 mg Route: PO; rb1 13:30 Follow up: Response: No adverse reaction; Pain is decreased rb1 Outcome: 15:46 Discharge ordered by . rh1 16:13 Discharged to home ambulatory. rb1 16:13 Condition: stable 16:13 Discharge instructions given to patient, Instructed on discharge instructions, follow up and referral plans. medication usage, Demonstrated understanding of instructions, follow-up care, medications, Prescriptions given X 1. 16:13 Patient left the ED. rb1 Signatures: Dispatcher [employer] EDMS Usha Naylor, FLIGHT ENGINEER INSPECTOR-C FLIGHT ENGINEER INSPECTOR-CsnYamila Henry Audri RN RN aa5 Marcie Jacome NP ENDOSCOPIC TECHNICIAN rh1 Dunia Dukes RN RN rb1 Tasha Mazariegos kj1 Corrections: (The following items were deleted from the chart) 10:57 10:56 BP 162 / 82; Pulse 86bpm; Resp 18bpm; Spontaneous; Pulse Ox 99% RA; Temp 98.8F aa5 Temporal; 63.5 kg Reported; Height 5 ft. 7 in. Reported; BMI: 21.9; aa5
--- NOTE | 2019-01-24 15:47 | EDPHYS ---
Physician Documentation [facility] Name: Marcie Chaves Age: 63 yrs Sex: Female : 1955 Arrival Date: 01/24/2019 Time: 10:34 Bed 15 Private MD: ED Physician Lucas Watters HPI: 01/24 14:06 This 63 yrs old Female presents to ER via Ambulatory with complaints of Feet snw Swelling, Foot Pain. 14:06 The patient presents with pain, that is acute. The complaints affect the dorsum of snw right foot. Context: The problem was sustained at an unknown site, resulted from an unknown cause. Onset: The symptoms/episode began/occurred suddenly. Associated signs and symptoms: Pertinent positives: swelling. Severity of symptoms: At their worst the symptoms were moderate. The patient has not experienced similar symptoms in the past. The patient has not recently seen a physician, the patient's primary care provider is Dr. Sahu. Historical: - Allergies: 10:56 Methotrexate; aa5 - Home Meds: 15:52 Actemra intravenous intravenous [Active]; azathioprine 50 mg Oral tab 2 tabs daily rb1 [Active]; celecoxib 200 mg Oral cap 1 cap 2 times per day [Active]; gabapentin 800 mg oral tab 1 tab 3 times per day [Active]; duloxetine 60 mg oral cpDR 1 cap once daily [Active]; tramadol 50 mg Oral tab 1 tab twice a day PRN [Active]; baclofen 10 mg Oral tab 1 tab 3 times per day [Active]; prednisone 5 mg Oral tab 1 tab once daily [Active]; triamterene-hydrochlorothiazid 37.5-25 mg Oral cap 1 cap once daily [Active]; pravastatin 20 mg oral tab 1 tab once daily [Active]; Symbicort inhalation inhalation 1 puffs 2 times per day [Active]; Ventolin Rotahaler/Rotacaps Inhl four times a day [Active]; Zyrtec 10 mg Oral tab 1 tab once daily for PRN [Active]; Tylenol Extra Strength 500 mg oral tab 2 tabs 2-3 times per day [Active]; Probiotics [Active]; Vitamin D3 2,000 unit oral cap daily [Active]; rkpwmqx-hzdflgurx-dsqr oral tab 2 tabs daily [Active]; multivitamin hair, skin, and nails [Active]; cranberry oral oral [Active]; CoQ-10 oral oral [Active]; diclofenac gel [Active]; pilocarpine 5 mg 1 tab daily [Active]; - PMHx: 10:56 RA; COPD; Hypertension; Hyperlipidemia; aa5 - PSHx: 10:56 Back sx; Left Kidne (tumors); aa5 - Immunization history:: Pneumococcal vaccine is up to date, Flu vaccine is up to date. - Social history:: Smoking status: Patient/guardian denies using tobacco. - Ebola Screening: : No symptoms or risks identified at this time. ROS: 14:06 Constitutional: Negative for fever, chills, and weight loss, Eyes: Negative for injury, snw pain, redness, and discharge, ENT: Negative for injury, pain, and discharge, Neck: Negative for injury, pain, and swelling, Cardiovascular: Negative for chest pain, palpitations, and edema, Respiratory: Negative for shortness of breath, cough, wheezing, and pleuritic chest pain, Abdomen/GI: Negative for abdominal pain, nausea, vomiting, diarrhea, and constipation, Back: Negative for injury and pain, : Negative for injury, bleeding, discharge, and swelling, Skin: Negative for injury, rash, and discoloration, Neuro: Negative for headache, weakness, numbness, tingling, and seizure. 14:06 MS/extremity: Positive for paresthesias, swelling, tenderness, of the right foot. Exam: 14:05 Constitutional: This is a well developed, well nourished patient who is awake, alert, snw and in no acute distress. Head/Face: Normocephalic, atraumatic. Eyes: Pupils equal round and reactive to light, extra-ocular motions intact. Lids and lashes normal. Conjunctiva and sclera are non-icteric and not injected. Cornea within normal limits. Periorbital areas with no swelling, redness, or edema. ENT: Nares patent. No nasal discharge, no septal abnormalities noted. Tympanic membranes are normal and external auditory canals are clear. Oropharynx with no redness, swelling, or masses, exudates, or evidence of obstruction, uvula midline. Mucous membranes moist. Neck: Trachea midline, no thyromegaly or masses palpated, and no cervical lymphadenopathy. Supple, full range of motion without nuchal rigidity, or vertebral point tenderness. No Meningismus. Chest/axilla: Normal chest wall appearance and motion. Nontender with no deformity. No lesions are appreciated. Cardiovascular: Regular rate and rhythm with a normal S1 and S2. No gallops, murmurs, or rubs. Normal PMI, no JVD. No pulse deficits. Respiratory: Lungs have equal breath sounds bilaterally, clear to auscultation and percussion. No rales, rhonchi or wheezes noted. No increased work of breathing, no retractions or nasal flaring. Abdomen/GI: Soft, non-tender, with normal bowel sounds. No distension or tympany. No guarding or rebound. No evidence of tenderness throughout. Back: No spinal tenderness. No costovertebral tenderness. Full range of motion. Neuro: Awake and alert, GCS 15, oriented to person, place, time, and situation. Cranial nerves II-XII grossly intact. Motor strength 5/5 in all extremities. Sensory grossly intact. Cerebellar exam normal. Normal gait. Psych: Awake, alert, with orientation to person, place and time. Behavior, mood, and affect are within normal limits. 14:05 Musculoskeletal/extremity: Extremities: + RA changes. 14:05 Skin: Appearance: normal except for affected area, right foot with mild edema, mild erythema, cool to touch, tender on dorsiflexion. 15:43 Musculoskeletal/extremity: Extremities: grossly normal except: noted in the dorsum of rh1 right foot and anterior aspect of right ankle: erythema, tenderness, very mild erythema, mildly tender, There is no evidence of abrasion, decreased ROM, deformity, ecchymosis, laceration, puncture, swelling, ROM: full active range of motion, in the right foot and right leg, limited active range of motion due to pain, in the dorsum of right foot, pain with flexion of toes, as well as dorsiflexion, Pulses: noted to be 2+ in the right posterior tibial artery, right dorsalis pedis artery, left posterior tibial artery and left dorsalis pedis artery, Perfusion: the extremity is pink, warm, with brisk capillary refill, Calf tenderness, is absent, Edema, is not appreciated, Sensation intact. Vital Signs: 10:56 BP 162 / 82; Pulse 86; Resp 18 S; Temp 98.8(TE); Pulse Ox 99% on R/A; Weight 63.5 kg aa5 (R); Height 5 ft. 7 in. (170.18 cm) (R); Pain 7/10; 12:00 BP 149 / 89; Pulse 83; Resp 17; Pulse Ox 99% on R/A; Pain 7/10; rb1 13:00 BP 145 / 71; Pulse 81; Resp 16; Pulse Ox 96% on R/A; Pain 7/10; rb1 13:57 BP 139 / 70; Pulse 90; Resp 18; Temp 98(O); Pulse Ox 99% on R/A; kj1 14:45 BP 146 / 67; Pulse 79; Resp 16; Pulse Ox 100% on R/A; Pain 4/10; rb1 15:52 BP 150 / 69; Pulse 90; Resp 18; Pulse Ox 96% on R/A; kj1 10:56 Body Mass Index 21.93 (63.50 kg, 170.18 cm) aa5 MDM: 12:03 Patient medically screened. snw 15:43 Data reviewed: vital signs, radiologic studies, ultrasound, I have discussed the rh1 patient's presentation/case with the attending Emergency Department Physician; and as a result, I will discharge patient. Data interpreted: Pulse oximetry: on room air is 100 %. Interpretation: normal. Counseling: I had a detailed discussion with the patient and/or guardian regarding: the historical points, exam findings, and any diagnostic results supporting the discharge/admit diagnosis, radiology results, the need for outpatient follow up, a family practitioner, a cheese blender, to return to the emergency department if symptoms worsen or persist or if there are any questions or concerns that arise at home. Special discussion: I discussed with the patient/guardian in detail that at this point there is no indication for admission to the hospital. It is understood, however, that if the symptoms persist or worsen the patient needs to return immediately for re-evaluation. 01/24 12:49 Order name: US Lower Extremity Artery Uni Ltd; Complete Time: 15:26 snw 01/24 13:10 Order name: Extrem Venous W Compress Bladimir; Complete Time: 15:19 EDMS Administered Medications: 12:59 Drug: UltRAM 50 mg Route: PO; rb1 13:30 Follow up: Response: No adverse reaction; Pain is decreased rb1 Disposition: 17:56 Co-signature as Attending Physician, Lucas Watters MD. rn Disposition: 01/24/19 15:46 Discharged to Home. Impression: Pain in right ankle and joints of right foot. - Condition is Stable. - Discharge Instructions: Joint Pain, Arthritis, Vasculitis. - Prescriptions for Prednisone 20 mg Oral Tablet - take 2 tablet by ORAL route once daily for 5 days; 10 tablet. - Medication Reconciliation Form, Thank You Letter, Antibiotic Education, Prescription Opioid Use form. - Follow up: Private Physician; When: 1 - 2 days; Reason: Recheck today's complaints, Continuance of care, Re-evaluation by your physician. Follow up: Emergency Department; When: As needed; Reason: If symptoms return, Worsening of condition. - Problem is new. - Symptoms have improved. Signatures: Dispatcher [employer] EDAR Usha Naylor, LUMBER YARD WORKER-C LUMBER YARD WORKER-Csnw Lucas Watters MD MD rn Calderon, Audri RN RN aa5 Marcie Jacome NP GLOBAL ENGINEERING MANAGER rh1 Dunia Dukes RN RN rb1 Corrections: (The following items were deleted from the chart) 13:27 13:04 Extremity Venous Uni Ltd+[email or web address] ordered. EDAR EDMS 13:28 13:10 Lower Extremity Artery Uni Ltd ordered. EDAR EDMS 16:13 15:46 01/24/2019 15:46 Discharged to Home. Impression: Pain in right ankle and joints rb1 of right foot. Condition is Stable. Forms are Medication Reconciliation Form, Thank You Letter, Antibiotic Education, Prescription Opioid Use. Follow up: Private Physician; When: 1 - 2 days; Reason: Recheck today's complaints, Continuance of care, Re-evaluation by your physician. Follow up: Emergency Department; When: As needed; Reason: If symptoms return, Worsening of condition. Problem is new. Symptoms have improved. rh1
[2019-01-24 16:23] VITALS: TEMP 98
[2019-01-24 16:25] VITALS: BP 150/69; O2SAT 96
== END 2019-01-24 16:13 | disposition home or self-care (01) ==
LOC: ER 10:29
DX: M25.571 Pain in right ankle and joints of right foot (principal); J44.9 Chronic obstructive pulmonary disease, unspecified; I10 Essential (primary) hypertension; E78.5 Hyperlipidemia, unspecified; Z88.8 Allergy status to other drugs, medicaments and biological substances
CPT/HCPCS: 93926; 93970; 99284